=== PATIENT | female | born 1970 | race Caucasian/White ===

== ENCOUNTER 2017-07-29 19:37 | Emergency (ER) | payer OTHER, SELFPAY ==
[2017-07-29 19:37] VITALS: BP 128/89; PULSE 101; RESP 24; TEMP 36.8; O2SAT 96; BMI 38.0
[2017-07-29 20:12] VITALS: O2SAT 98
--- NOTE | 2017-07-29 20:15 | RAD_ITS ---
STUDY: X-RAY CHEST REASON FOR EXAM: Female, 47 years old. Short of breath and cough. TECHNIQUE: Frontal and lateral views of the chest. COMPARISON: None. FINDINGS: The lungs are clear and expanded. Stable small calcified granulomas of the mid right lung. There is no demonstrated pleural abnormality. Normal size heart. Normal mediastinum and mary. Normal visualized pulmonary arteries. Normal visualized aortic arch and descending thoracic aorta. Normal visualized thoracic spine. Normal visualized ribs, clavicles, and shoulders. There is no demonstrated abnormality of the visualized soft tissue structures of the upper abdomen. RAD/Chest PA and Lateral IMPRESSION: No acute chest disease. Electronically Signed: Pato Hwang MD at 20:31 EDT , Service support ,
--- NOTE | 2017-07-29 20:30 | ED.DCSUM_ITS ---
- ER Visit Summary Date of Service: 07/29/17 Chief Complaint: Cough History of Present Illness: The patient is a 47 F date that last Friday she began to have sneezing and cough. She states that by Friday she believes she had a fever. She notes bilateral ear pressure. She states she has a history of tympanic membrane rupture is a further interruption her again. She states her chest is very sore from coughing. She states that this is gotten to the point where she is unable to smoke. No recent fever today. Nasal drainage has been clear. Physical Examination: Afebrile vital signs are stable Gen: Well-nourished well-developed Head: Normocephalic atraumatic Eyes: Perrl EOMI ENT: Patient has a serous otitis bilaterally. There is evidence of prior tympanic membrane rupture. She has bilateral turbinate edema with clear rhinorrhea. She has evidence of postnasal drip. Patient complains of tenderness palpation over frontal maxillary sinuses. Neck: Supple no lymphadenopathy no JVD nontender CVS: Regular rate rhythm no murmurs normal S1-S2 Respiratory: No distress clear to auscultation bilaterally chest nontender Abdomen: Soft nontender nondistended normal bowel sounds no masses Back: Nontender Extremity: Nontender no edema Skin: Normal color no rash Neuro: alert orientated ?3 CN II-XII intact normal strength sensation reflexes gait cerebellar Psych: Normal affect normal mood Test Results: Chest x-ray was obtained. This was negative Emergency Department Course and Treatment: Patient will be started on prednisone and doxycycline. She can take ibuprofen for the chest wall pain. Follow-up with her doctor if not improving. Impression: 1. Sinusitis This note was generated with [employer] dictation software. It may contain incorrect words, spelling, and punctuation that were not noted in review of the chart prior to signing ED Disposition - Plan for ED Patient: Disposition: Home or Assisted Living Chief Complaint: Shortness of Breath Instructions: ED Sinusitis Abx Tx Prescriptions: Prednisone [Deltasone] 60 mg PO DAILY #15 tab Doxycycline Hyclate 1 tab PO BID #20 cap Referrals: Bar Jaeger MD [Primary Care Provider] - 1 Week if not improving
[2017-07-29 20:58] VITALS: BP 125/97; PULSE 93; O2SAT 96
== END 2017-07-29 20:59 | disposition home or self-care (01) ==
PROVIDERS: Emergency Provider Emergency Medicine; Family Provider Internal Medicine; PCP Internal Medicine
DX: J32.1 Chronic frontal sinusitis (principal); J32.0 Chronic maxillary sinusitis; H65.93 Unspecified nonsuppurative otitis media, bilateral; F17.200 Nicotine dependence, unspecified, uncomplicated; I10 Essential (primary) hypertension; F41.9 Anxiety disorder, unspecified; Z79.82 Long term (current) use of aspirin; Z79.899 Other long term (current) drug therapy
CPT/HCPCS: 71046; 99282

== ENCOUNTER 2019-06-06 22:07 | Emergency (ER) | payer OTHER, SELFPAY ==
[2019-06-06 22:08] VITALS: BP 153/93; PULSE 109; RESP 19; TEMP 37.1; O2SAT 97; BMI 37.3
--- NOTE | 2019-06-06 22:09 | ED.RN ---
PULLED OLD EKG FOR
--- NOTE | 2019-06-06 22:28 | EKG12_ITS ---
Test Reason : CP Blood Pressure : / mmHG Vent. Rate : 106 BPM Atrial Rate : 106 BPM P-R Int : 150 ms QRS Dur : 090 ms QT Int : 356 ms P-R-T Axes : 051 081 018 degrees QTc Int : 472 ms Sinus tachycardia Nonspecific T wave abnormality Abnormal ECG Confirmed by KARLOS IRIZARRY, AYLIN ([id number]), website/blog editor JANESSA JIMENEZ ([id number]) on 06/08/2019 8:17:56 AM Referred By: ALESSIA Confirmed By:AYLIN EVERETT MD
--- NOTE | 2019-06-06 22:28 | ED.DCSUM_ITS ---
History of Present Illness Chief Complaint: General Illness Informant: Patient Narrative: Patient presents for the evaluation of chest pain. 49-year-old smoker states that she was sitting down eating [place] sprouts and watching the Super Bowl. She developed a midsternal lower chest tightness. States that last about 15 minutes. She never had that before. She states that this really scared her as her mom had heart attack and strokes when she was young. She states that her anxiety is making her panic and tearful. She also notes that her eardrums have ruptured recently due to infection and she has had a cough. She has been on erythromycin. She is also out of her pain medication that she takes for chronic sciatica. Past Medical History - Allergies and Home Meds Allergies/Adverse Reactions: Allergies No Known Allergies Allergy (Verified 07/29/17 19:39) Primary Care Physician: Bar Jaeger MD [Primary Care Provider] - Smoking Status: Current every day smoker Review of Systems General: Denies: Chills, Fever, Sweats Eyes: Denies: Visual changes - bilaterally, Diplopia ENT: Reports: Bilateral ear pain. Denies: Rhinorrhea, Sore throat Cardiovascular: Reports: Chest pain. Denies: Palpitations Respiratory: Reports: Cough. Denies: Dyspnea, Dyspnea on exertion Gastrointestinal: Denies: Abdominal pain, Nausea, Vomiting, Diarrhea, Melena, Hematochezia Genitourinary: Denies: Dysuria, Hematuria, Frequency Musculoskeletal: Reports: Back pain. Denies: Extremity Pain Skin: Denies: Rash, Wounds Neurological: Denies: Headache, Weakness, Numbness Physical Exam Vital Signs/Narrative: Vital Signs Temp Pulse Resp BP Pulse Ox 06/06/19 22:08 98.7 F 109 H 19 H 153/93 H 97 Inital Vital Signs reviewed: Yes General: Well nourished, Well developed, Obese, No Acute Distress Head: Normocephalic, Atraumatic Eyes: Perrl, EOMI ENT: Moist mucous membranes, No rhinorrhea Neck: Supple, Nontender Cardiovascular: Regular rate, No murmurs, Tachycardia Respiratory: No distress, CTA bilaterally, Chest nontender Abdomen: Soft, Nontender, Nondistended, Normal bowel sounds Extremities: Nontender, No edema Skin: Normal color, No rash Neurological: Alert, Oriented x3, Cranial nerves II-XII grossly intact, Normal Strength, Normal Sensation Psychological: Tearful - And anxious Diagnostic/Tx/Re-eval - Rhythm Strip Rhythm Strip: Sinus Tach Rate: 106 - I do not see any significant changes when compared to February 25, 2012. Ectopy: None - Medical Decision Making EKG sinus tachycardia at a rate of 106. However her heart rate when she is calm down is down into the 80s. Her EKG is unchanged from 2012. Cardiac enzymes negative. Chest x-ray negative. White count slightly elevated at 13. I think this is most likely to be esophageal spasm. She just finished eating a stack of [place] sprouts when she developed this lower midsternal pressure that did not radiate anywhere. Her anxiety I believe kicked in and made her very scared and tearful which increased her heart rate. At this point patient has scheduled follow-up on with her PCP. She tells me she had a stress test a couple years ago and talk to them about repeating it. As far as her chronic back pain and sciatica she states that is a nonissue for us betty as she will be able to get new medications soon. ED Disposition - Plan for ED Patient: Disposition: Home or Assisted Living Diagnosis: Chest pain Instructions: CHEST PAIN, Uncertain Cause, Esophageal Spasm Referrals: Bar Jaeger MD [Primary Care Provider] - Keep Arnaldo appointment Additional Instructions: Be sure to mention betty's chest pain visit with your doctor when you see him on . If before then you have continued symptoms please return for further evaluation.
[2019-06-06 22:35] VITALS: BP 149/108; PULSE 102; RESP 15; O2SAT 97
--- NOTE | 2019-06-06 22:35 | RAD_ITS ---
STUDY: X-RAY CHEST REASON FOR EXAM: Female, 49 years old. CHEST PAIN, COUGH TECHNIQUE: PA and lateral chest. COMPARISON: 09/28/2017. FINDINGS: The lungs are clear and expanded. There is no demonstrated pleural abnormality. Normal size heart. Normal mediastinum and mary. Normal visualized pulmonary arteries. Normal visualized aortic arch and descending thoracic aorta. Normal visualized thoracic spine. Normal visualized ribs, clavicles, and shoulders. There is no demonstrated abnormality of the visualized soft tissue structures of the upper abdomen. RAD/Chest PA and Lateral IMPRESSION: Normal x-ray examination of the chest. Electronically Signed: Ashia Mckee MD at 23:01 EST Tel , Service support ,
[2019-06-06 22:43] LABS: Absolute Lymphocyte Count 3.66 X10^3/uL (0.83-4.51); Absolute Neutrophil Count 8.7 X10^3/uL (2.0-7.7); Basophil# 0.04 X10^3/uL; Basophil% 0.3 % (0-1); Eosinophil# 0.15 X10^3/uL; Eosinophils% 1.1 % (0-5); Hematocrit 38.5 % (37-47); Hemoglobin 13.4 g/dL (12.0-15.0); Lymphocyte # 3.66 X10^3/ul (4.0); Lymphocyte % 27.1 % (19-41); Mean Corp Hgb Conc 34.8 g/dL (32-36); Mean Corpuscular Hgb 30.5 pg (27.0-32.0); Mean Corpuscular Volume 87.5 fL (81-99); Mean Platelet Vol. 9.1 fl (6.2-12.0); Monocyte# 0.87 X10^3/uL; Monocyte% 6.4 % (0-10); NRBC Flagged by Analyzer 0 % (0-5); Neutrophil % 64.4 % (47-70); Platelet Count 525 K/mm3 (150-450); RBC Distribution Width CV 12.3 % (11.6-14.6); RBC Distribution Width SD 39.7 fl (35.1-43.9); White Blood Count 13.5 K/mm3 (4.4-11.0)
[2019-06-06 22:59] LABS: Anion Gap 10 (5-15); BUN 7 mg/dL (7-18); BUN/Creat Ratio 9.2 RATIO (10-20); Calcium,Total 9.2 mg/dL (8.5-10.1); Chloride 94 mmol/L (98-107); Creatinine, Serum 0.76 mg/dL (0.55-1.02); EST Glomerular Filtration Rate 85 mL/min (>60); Est Glom Filt Rate - Afr Amer 102 mL/min (>60); Estimated Creatinine Clearance 72.44 ml/min; Glucose 103 mg/dL (74-106); Potassium 3.3 mmol/L (3.5-5.1); Sodium Level 130 mmol/L (136-145)
[2019-06-07 00:01] VITALS: BP 150/106; PULSE 95; RESP 16; O2SAT 96
== END 2019-06-07 00:02 | disposition home or self-care (01) ==
PROVIDERS: Emergency Provider Emergency Medicine; PCP Internal Medicine
DX: R07.9 Chest pain, unspecified (principal); F17.200 Nicotine dependence, unspecified, uncomplicated; F41.9 Anxiety disorder, unspecified; E66.9 Obesity, unspecified; Z68.37 Body mass index [BMI] 37.0-37.9, adult; Z82.49 Family history of ischemic heart disease and other diseases of the circulatory system
CPT/HCPCS: 71046; 80048; 84484; 85025; 93005; 99284; A4216

== ENCOUNTER 2021-02-24 17:06 | Emergency (ER) | payer OTHER, SELFPAY ==
[2021-02-24 17:06] VITALS: BP 158/105; PULSE 90; RESP 20; TEMP 36.7; O2SAT 98; BMI 36.2
--- NOTE | 2021-02-24 19:01 | EX.ED.UPPERE ---
HPI History of Present Illness Chief Complaint: Wound Detail of Chief Complaint: Dog scratch medial left arm Informant: patient Occured/Mechanism Mechanism/Context: Yes blunt trauma Onset/Context/Timing Onset: Days (Several days ago) Context: Sudden Onset Timing: Continuous Current Severity: Gone Maximum Severity: Moderate Worsened by: Palpation Relieved by: Rest Associated Symptoms Associated Symptoms: Negative for Parasthesia, Weakness and Loss of Funtion Narrative Narrative: Patient is a 51-year-old [id number] woman who presents because her dog scratched her medial left arm. This occurred 7 days ago. She denies paresthesia, anesthesia medics. Immunization up-to-date. Her son has been caring for it. She did have a Steri-Strip on it. Tetanus Immunization: 5-10 years Prior similar symptoms: No Recent Illness/Hospitalization: No PFSH PFSH Medical History Anxiety Depression Hyperlipidemia Hypertension Hypothyroidism Smoker Home Medications hydrocodone-acetaminophen 1 - 2 tab PO Q4H PRN PRN #12 tablet 12/29/14 [Rx Last Taken Unknown] aspirin 1 tab PO DAILY 07/29/17 [History Last Taken Unknown] fluoxetine 1 tab PO DAILY 07/29/17 [History Last Taken Unknown] hydrochlorothiazide 1 tab PO DAILY 07/29/17 [History Last Taken Unknown] nebivolol [Bystolic] 1 tab PO DAILY 07/29/17 [History Last Taken Unknown] levothyroxine 50 mcg PO DAILY 06/06/19 [History Last Taken Unknown] Allergy/AdvReac Type Severity Reaction Status Date / Time amoxicillin [From Augmentin] Allergy Nausea/Vom/ Verified 02/24/21 17:50 Diarrhea atorvastatin [From Lipitor] Allergy NEEDS Verified 02/24/21 17:50 FOLLOW-UP clavulanic acid Allergy Nausea/Vom/ Verified 02/24/21 17:50 [From Augmentin] Diarrhea Social History (Updated 02/24/21 @ 19:[address] Adolfo Juárez MD) household members: none Smoking Status: Current every day smoker tobacco type: cigarettes substance use type: does not use ROS ROS ED Constitutional Constitutional ED: Denies chills, fever(s), subjective, sweats or weight loss Gastrointestinal Gastrointestinal: Denies nausea or vomiting Musculoskeletal Musculoskeletal: Reports other Details: Left arm pain ; Denies back pain, myalgias or neck pain Integumentary Reports other Details: Bruising and 2 lacerations due to dog scratch ; Denies abscess, Abrasions or rash Neurologic Neurologic: Denies paresthesias or weakness Hematologic/Lymphatic Hematologic/Lymphatic: Denies easy bleeding or easy bruising EXAM Physical Exam Const Vital Signs: 02/24/21 17:06 Temperature 98.1 F Temperature Source Temporal Pulse Rate 90 Respiratory Rate 20 H Blood Pressure 158/105 H Blood Pressure Mean 122 Pulse Ox 98 Oxygen Delivery Method Room Air Positive well nourished, well developed and obese General Appearance ED: well developed and NAD Nutritional Appearance: obese HEENT normocephalic and atraumatic Eyes PERRL and EOMs intact bilaterally Resp normal respiratory effort Cardio regular rate and regular rhythm Extremity Extremity Narrative: Bruising and to open laceration without evidence infection medial left arm. There is no lymphangitis, warmth, erythema or drainage. Neuro oriented x3 and CN's II-XII intact bilaterally Neuro Narrative: Median, radial, ulnar nerve function intact. Sensorium / Orientation: alert Psych mental status grossly normal Skin Skin Narrative: A 2.5 and 1.0 cm laceration medial left arm due to dog scratch. Rashes: no rashes Trauma: Negative for no lacerations or abrasions MDM MDM MDM Narrative Medical decision making narrative: Patient with healing wound by secondary intention without evidence infection. There is bruising. Patient be discharged home with appropriate home-going structures. She was instructed to have her son continue doing what he has been doing. She was told it may take another 1 to 3 weeks to heal and that she will have significant scars. Discharge Plan Triage Chief Complaint: Wound ED Provider: Adolfo Juárez Dx/Rx/DC Orders Clinical Impression: Laceration of left upper arm, Contusion of left upper arm, initial encounter Instructions: ED Contusion, Upper Extremity, ED Laceration, Old: Not Sutured Prescriptions: No Action hydrocodone-acetaminophen 1 TABLET tablet 1 - 2 tab PO Q4H PRN PRN (Reason: Pain) Qty: 12 RF: 0 aspirin 81 MG Tab.Chew 1 tab PO DAILY RF: 0 hydrochlorothiazide 25 MG tablet 1 tab PO DAILY RF: 0 fluoxetine 20 MG capsule 1 tab PO DAILY RF: 0 nebivolol [Bystolic] 5 MG tablet 1 tab PO DAILY RF: 0 levothyroxine 50 MCG tablet 50 mcg PO DAILY RF: 0 Primary Care Provider: Bar Jaeger Referrals: Bar Jaeger MD [Primary Care Provider] - As Needed Disposition Disposition: Home, Self Care
[2021-02-24 19:30] VITALS: BP 138/78; PULSE 80; RESP 19; O2SAT 97
== END 2021-02-24 19:31 | disposition home or self-care (01) ==
PROVIDERS: Emergency Provider Emergency Medicine; PCP Internal Medicine
DX: S41.112A Laceration without foreign body of left upper arm, initial encounter (principal); S40.022A Contusion of left upper arm, initial encounter; W54.1XXA Struck by dog, initial encounter; Y93.9 Activity, unspecified; Y92.9 Unspecified place or not applicable; Y99.9 Unspecified external cause status; I10 Essential (primary) hypertension; E78.5 Hyperlipidemia, unspecified; E03.9 Hypothyroidism, unspecified; F17.210 Nicotine dependence, cigarettes, uncomplicated; Z79.82 Long term (current) use of aspirin; Z79.899 Other long term (current) drug therapy
CPT/HCPCS: 99283

== ENCOUNTER 2022-02-21 16:09 | Emergency (ER) | payer OTHER, SELFPAY ==
[2022-02-21 16:10] VITALS: BP 148/104; PULSE 113; RESP 26; TEMP 36.1; O2SAT 95; BMI 34.5
--- NOTE | 2022-02-21 16:36 | EDS_ITS ---
HPI History of Present Illness Chief Complaint: Back Narrative Narrative: Patient with past medical history of chronic back pain and sciatica presents with a 4-day flare of her sciatic problems. She states she used to be in pain management, then went and saw her primary care physician. She used to take narcotic pain medication but quit taking that in May of this year because she did not like the way it made her feel. She has been taking ibuprofen without relief. She denies any fevers or chills. She has pain in her low back and buttocks bilaterally. Sometimes it will shoot down the right side, other times the left. No saddle anesthesias. She denies any loss of bowel or bladder but states that sometimes with the pain she has a bladder spasm which causes her to wet herself. She denies any red flag signs for cauda equina. She presents to the emergency department wanting a shot of Toradol to help with her pain. PFSH PFSH Medical History Anxiety COPD (chronic obstructive pulmonary disease) Depression Hyperlipidemia Hypertension Hypothyroidism Smoker Home Medications aspirin 81 mg chewable tablet 1 tab PO DAILY 07/29/17 [History Last Taken Unkn own] fluoxetine 20 mg capsule 1 tab PO DAILY 07/29/17 [History Last Taken Unknown] hydrochlorothiazide 25 mg tablet 1 tab PO DAILY 07/29/17 [History Last Taken Unknown] nebivolol 5 mg tablet (Bystolic) 0.5 tab PO DAILY 07/29/17 [History Last Taken Unknown] levothyroxine 50 mcg tablet 50 mcg PO DAILY 06/06/19 [History Last Taken Unknown] Allergy/AdvReac Type Severity Reaction Status Date / Time amoxicillin [From Augmentin] Allergy Nausea/Vom/ Verified 02/21/22 16:13 Diarrhea atorvastatin [From Lipitor] Allergy NEEDS Verified 02/21/22 16:13 FOLLOW-UP clavulanic acid Allergy Nausea/Vom/ Verified 02/21/22 16:13 [From Augmentin] Diarrhea Social History household members: none Smoking Status: Current every day smoker tobacco type: cigarettes substance use type: does not use ROS ROS ED ROS Narrative Constitutional: No fever, no chills. HEENT: No sore throat. No neck pain. No loss of vision. No rhinorrhea. Cardiovascular: No chest pain. No palpitations. No pedal edema. Respiratory: No cough, no shortness of breath. Abdominal: No abdominal pain. No nausea. No vomiting. Genitourinary: No dysuria. No hematuria. Musculoskeletal: No myalgias. No arthralgias. Positive low back pain and sciatic pain and buttocks bilaterally. Neurologic: No headaches. No dizziness. No lightheadedness. Skin: No rash. No change in color. Psychiatric: No depression. No anxiety. EXAM Physical Exam Narrative Exam Narrative: Afebrile. Vital signs noted. HEENT: Normocephalic. Atraumatic. PERRL, EOMI. Neck soft and supple. No point tenderness or step off. Cardiovascular: Regular rate and rhythm. No murmurs, rubs, or gallops appreciated. Respiratory: No tachypnea. Lungs clear to auscultation bilaterally. Gastrointestinal: Abdomen soft, nontender, with normoactive bowel sounds. No rebound or guarding. Neurological: Awake. Alert. Nonfocal, nonlateralizing. Able to transfer from chair and sit on cot. DTRs equal and symmetric. Skin: No rash. Normal color. No pallor. Musculoskeletal: No pedal edema. Full range of motion extremities. Diffuse tenderness to palpation and bilateral sciatic notches and lumbar paraspinal musculature. No step-off. Const Vital Signs: 02/21/22 16:10 Temperature 96.9 F L Temperature Source Temporal Pulse Rate 113 H Respiratory Rate 26 H Blood Pressure 148/104 H Blood Pressure Mean 118 Pulse Ox 95 Oxygen Delivery Method Room Air MDM MDM MDM Narrative Medical decision making narrative: I did offer the patient a muscle relaxer but she declined. She was given an intramuscular injection of Toradol 60 mg. Upon repeat evaluation, she is sitting in the chair comfortably. She states that the sharp pain is relieved and she feels improved. She will continue her [id number] ibuprofen and follow-up with her primary care physician. I feel she can be discharged safely home with follow-up. Return instructions to the emergency department were reviewed. Disposition is discharged home in stable condition. Discharge Plan Triage Chief Complaint: Back ED Provider: Wilfredo Sanchez Dx/Rx/DC Orders Clinical Impression: Chronic back pain, Bilateral sciatica Instructions: ED Back Pain (Acute or Chronic), ED Sciatica Prescriptions: No Action aspirin 81 MG tablet,chewable 1 tab PO DAILY hydrochlorothiazide 25 MG tablet 1 tab PO DAILY fluoxetine 20 MG capsule 1 tab PO DAILY Label Comments: TAKE 1 CAPSULE EVERY DAY nebivolol [Bystolic] 5 MG tablet 0.5 tab PO DAILY Label Comments: TAKE 1 TABLET BY MOUTH EVERY DAY DIRECTED levothyroxine 50 MCG tablet 50 mcg PO DAILY Primary Care Provider: Jonatan Bolton Referrals: Bar Jaeger MD [Non-Staff] - 3-5 Days if not improving Disposition Disposition: Home, Self Care
[2022-02-21] MEDS: Ketorolac 60 MG/2 ML Vial IM (16:53)
[2022-02-21 18:09] VITALS: RESP 18
[2022-02-21 18:17] VITALS: RESP 16
== END 2022-02-21 18:23 | disposition home or self-care (01) ==
PROVIDERS: Emergency Provider Emergency Medicine; PCP Internal Medicine; Visit Provider Emergency Medicine
DX: M54.41 Lumbago with sciatica, right side (principal); J44.9 Chronic obstructive pulmonary disease, unspecified; M54.42 Lumbago with sciatica, left side; G89.29 Other chronic pain; E78.5 Hyperlipidemia, unspecified; E03.9 Hypothyroidism, unspecified; I10 Essential (primary) hypertension; F17.210 Nicotine dependence, cigarettes, uncomplicated; Z79.82 Long term (current) use of aspirin; Z79.899 Other long term (current) drug therapy
CPT/HCPCS: 96372; 99282

== ENCOUNTER 2023-04-05 20:16 | Emergency (ER) | payer OTHER, SELFPAY ==
[2023-04-05 20:17] VITALS: BP 148/110; PULSE 113; RESP 20; TEMP 36.6; O2SAT 99; BMI 33.8
--- NOTE | 2023-04-05 20:33 | EKG12_ITS ---
Test Reason : DYSRHYTHMIA Blood Pressure : / mmHG Vent. Rate : 100 BPM Atrial Rate : 100 BPM P-R Int : 132 ms QRS Dur : 084 ms QT Int : 368 ms P-R-T Axes : 047 078 014 degrees QTc Int : 474 ms Normal sinus rhythm Normal ECG Confirmed by KARLOS IRIZARRY, AYLIN ([id number]), metropolitan editor NIK SCHWARTZ ([id number]) on 04/07/2023 10:09:50 AM Referred By: Confirmed By:AYLIN EVERETT MD
--- NOTE | 2023-04-05 20:37 | EDS_ITS ---
HPI History of Present Illness Chief Complaint: General Illness Informant: patient Narrative Narrative: Patient presents secondary to URI symptoms and chest pain. She reports a chronic ongoing cough that is recently worsened. She has chronic pain around the left lateral chest wall that she states is recently moved and gotten worse. She reports midsternal chest pain for the past 2 days. She states the pain seems to go straight through to her back. She also reports chronic sinus congestion and drainage. She states this has been ongoing for about 4 months. PFSH PFSH Medical History Anxiety COPD (chronic obstructive pulmonary disease) Depression Hyperlipidemia Hypertension Hypothyroidism Smoker Home Medications aspirin 81 mg chewable tablet 1 tab PO DAILY 07/29/17 [History Last Taken Unknown] hydrochlorothiazide 25 mg tablet 1 tab PO QHS 07/29/17 [History Last Taken Unknown] nebivolol 5 mg tablet (Bystolic) 0.5 tab PO DAILY 07/29/17 [History Last Taken Unknown] doxycycline monohydrate 100 mg capsule 100 mg PO BID #20 CAPSULES 04/05/23 [Rx Last Taken Unknown] hydrocodone-acetaminophen 5-325mg 5mg-325mg 1 tab PO Q6H PRN pain 1 day #4 TABLETS 04/05/23 [Rx Last Taken Unknown] loratadine 10 mg tablet (Allergy Relief (loratadine)) 10 mg PO DAILY 04/05/23 [History Last Taken Unknown] prednisone 20 mg tablet 40 mg (2 x 20 mg) PO DAILY #8 tabs 04/05/23 [Rx Last Taken Unknown] Allergy/AdvReac Type Severity Reaction Status Date / Time amoxicillin [From Augmentin] Allergy Nausea/Vom/ Verified 04/05/23 20:18 Diarrhea atorvastatin [From Lipitor] Allergy NEEDS Verified 04/05/23 20:18 FOLLOW-UP clavulanic acid Allergy Nausea/Vom/ Verified 04/05/23 20:18 [From Augmentin] Diarrhea Social History household members: none Smoking Status: Current every day smoker tobacco type: cigarettes substance use type: does not use ROS ROS ED Constitutional Constitutional ED: Denies chills or fever(s) Eyes Eyes: Denies discharge from eye(s) ENT ENT ED: Reports sore throat and other Details: Sinus drainage ; Denies discharge from eye(s) or rhinorrhea Cardiovascular Cardiovascular: Reports chest pain; Denies palpitations Respiratory/Chest Respiratory/Chest: Reports cough and dyspnea Gastrointestinal Gastrointestinal: Denies abdominal pain, diarrhea, nausea or vomiting Genitourinary Genitourinary ED: Denies dysuria Musculoskeletal Musculoskeletal: Reports back pain; Denies extremity pain Integumentary Denies Abrasions or rash Neurologic Neurologic: Denies headache(s) or weakness Psychiatric Psychiatric: Reports anxiety; Denies depression Allergic/Immunologic Allergic/Immunologic ED: Denies lip swelling or urticaria EXAM Physical Exam Const Vital Signs: 04/05/23 20:17 04/05/23 20:52 04/05/23 21:13 Temperature 97.8 F Temperature Source Temporal Pulse Rate 113 H 103 H Respiratory Rate 20 H 17 Respiratory Effort Normal Non-Labored Respiratory Pattern Normal Blood Pressure 148/110 H 150/95 H Blood Pressure Mean 122 113 Pulse Ox 99 Oxygen Delivery Method Room Air Positive well nourished and well developed General Appearance ED: well developed HEENT Reports moist mucous membranes HEENT Narrative: Posterior pharyngeal cobblestoning. No erythema. Uvula midline. Eyes EOMs intact bilaterally Chest Wall inspection of chest normal and palpation of chest normal Resp normal respiratory effort and clear to auscultation bilaterally Cardio regular rate and regular rhythm GI non-tender Palpation: soft Extremity normal to inspection Neuro oriented x3 and no sensory deficits noted Motor Exam: strength 5/5 throughout Psych Mood & Affect: anxious and tearful Skin no rashes or lesions noted MDM MDM MDM Narrative Medical decision making narrative: Patient placed on environmental monitoring specialist. EKG obtained to evaluate for cardiac arrhythmia/ischemia. Labwork obtained to evaluate for leukocytosis, anemia, and electrolyte derangement. Chest x-ray obtained to evaluate for acute lung pathology, cardiac size, or mediastinal abnormality. History & Record Review Discussion w/independent historian: Patient Lab Data Attestation: I reviewed the patient's lab results. Labs: Laboratory Results - last 24 hr 04/05/23 20:46 WBC 14.7 H RBC 4.87 Hgb 14.3 Hct 42.4 MCV 87.1 MCH 29.4 MCHC 33.7 RDW Std Deviation 40.9 RDW Coeff of Yudy 12.9 Plt Count 538 H MPV 8.9 Immature Gran % (Auto) 0.400 Neut % (Auto) 65.5 Lymph % (Auto) 26.6 Nye % (Auto) 6.7 Eos % (Auto) 0.5 Baso % (Auto) 0.3 Absolute Neuts (auto) 9.6 H Absolute Lymphs (auto) 3.90 Nucleated RBC % 0 D-Dimer Quant (PE/DVT) < 0.27 L Sodium 129 L Potassium 3.8 Chloride 96 L Carbon Dioxide 27.0 Anion Gap 6 BUN 11 Creatinine 0.74 Estim Creat Clear Calc 71.06 Est GFR (MDRD) Af Amer 104 Est GFR (MDRD) Non-Af 86 BUN/Creatinine Ratio 14.8 Glucose 125 H Calcium 9.7 Troponin I High Sens 4 B-Natriuretic Peptide 3.7 Radiography Chest X-Ray - ED: 1 View, Read by ED Physician, Normal, Heart, Lungs and Mediastinum Diagnostic Testing: Clinical Impression(s) from Imaging Studies Chest X-Ray 04/05/23 20:45 IMPRESSION: No radiographic evidence of acute cardiopulmonary disease. Electronically Signed: Aroldojana Womack, DO at 21:19 EST , EKG Initial EKG: Attestation: I personally reviewed and interpreted this EKG as follows: Interpretation: Sinus Rhythm (Sinus at 100 with no acute ischemia.) Treatment and Re-Evaluation :: CBC was white count of 14.7 with normal differential. Hemoglobin is normal at 14.3. Chemistry studies reveal a sodium of 129 which is consistent with her most recent labs. Renal function is normal. Glucose is 125. Troponin is normal at 4, BNP is normal at 3.7, D-dimer is less than 0.27. EKG is sinus with no acute ischemia. Portable chest x-ray per my interpretation reveals no acute findings. Radiology interpretation reviewed and agrees. Swab for COVID and influenza is negative. Test results discussed with the patient. She does have underlying COPD and in light of this I will cover her with a course of doxycycline. She has chest pain around the sternal border which may represent costochondritis. I will treat her with a burst of steroids for this and write her a few tabs of [place] for pain. I will refer her to ENT as she has had chronic sinus drainage and ear problems despite taking Claritin daily. Discharge Plan Triage Chief Complaint: General Illness ED Provider: Stephanie Fritz Dx/Rx/DC Orders Clinical Impression: Costochondritis, Sinus drainage, Bronchitis Instructions: ED Upper Resp Infec Abx Tx, ED Chest Wall Pain, Costochondritis Prescriptions: New doxycycline monohydrate 100 mg capsule 100 mg PO BID Qty: 20 0RF prednisone 20 mg tablet 40 mg PO DAILY Qty: 8 0RF hydrocodone-acetaminophen 5-325 mg tablet 1 tab PO Q6H PRN (Reason: pain) 1 Days Qty: 4 0RF No Action aspirin 81 MG tablet,chewable 1 tab PO DAILY hydrochlorothiazide 25 MG tablet 1 tab PO QHS nebivolol [Bystolic] 5 MG tablet 0.5 tab PO DAILY Patient Comments: TAKE 1 TABLET BY MOUTH EVERY DAY DIRECTED loratadine [Allergy Relief (loratadine)] 10 mg tablet 10 mg PO DAILY Primary Care Provider: NOT,DEFINED Referrals: Alfredo Collins MD [Med Staff - Active Staff] - 1-2 Weeks NOT,DEFINED [Primary Care Provider] - Disposition Disposition: Home, Self Care
--- NOTE | 2023-04-05 20:45 | RAD_ITS ---
EXAM: XR CHEST, 1 VIEW CLINICAL INDICATION: sob, cough TECHNIQUE: Frontal view of the chest. COMPARISON: 06/06/2019 FINDINGS: LUNGS AND PLEURAL SPACES: No significant abnormality. No consolidation or edema. No pneumothorax. No effusion. HEART: No significant abnormality. Cardiac silhouette not enlarged. MEDIASTINUM: Central airways and mediastinal contour are unremarkable. BONES/JOINTS: No significant abnormality. No acute fracture. SOFT TISSUES: No significant abnormality. RAD/Chest 1 View (Portable) IMPRESSION: No radiographic evidence of acute cardiopulmonary disease. Electronically Signed: Aroldo Womack DO at 21:19 EST ,
[2023-04-05 20:52] VITALS: BP 150/95; PULSE 103; RESP 17
[2023-04-05 20:53] LABS: Absolute Neutrophil Count 9.6 X10^3/uL (2.0-7.7); Basophil# 0.05 X10^3/uL; Basophil% 0.3 % (0-1); Eosinophil# 0.08 X10^3/uL; Eosinophils% 0.5 % (0-5); Hematocrit 42.4 % (37-47); Hemoglobin 14.3 g/dL (12.0-15.0); Lymphocyte % 26.6 % (19-41); Mean Corp Hgb Conc 33.7 g/dL (32-36); Mean Corpuscular Hgb 29.4 pg (27.0-32.0); Mean Corpuscular Volume 87.1 fL (81-99); Mean Platelet Vol. 8.9 fl (6.2-12.0); Monocyte# 0.98 X10^3/uL; Monocyte% 6.7 % (0-10); NRBC Flagged by Analyzer 0 % (0-5); Neutrophil # 9.61 X10^3/uL (2.7-7.7); Neutrophil % 65.5 % (47-70); Platelet Count 538 K/mm3 (150-450); RBC Distribution Width CV 12.9 % (11.6-14.6); RBC Distribution Width SD 40.9 fl (35.1-43.9); Red Blood Count 4.87 M/mm3 (4.2-5.4); White Blood Count 14.7 K/mm3 (4.4-11.0)
[2023-04-05 21:08] LABS: BNP,B-Type NATRIURETIC PEPTIDE 3.7 pg/mL (0-100)
[2023-04-05 21:11] LABS: Anion Gap 6 (5-15); BUN 11 mg/dL (7-18); BUN/Creat Ratio 14.8 RATIO (10-20); Calcium,Total 9.7 mg/dL (8.5-10.1); Chloride 96 mmol/L (98-107); Creatinine, Serum 0.74 mg/dL (0.55-1.02); EST Glomerular Filtration Rate 86 mL/min (>60); Est Glom Filt Rate - Afr Amer 104 mL/min (>60); Estimated Creatinine Clearance 71.06 ml/min; Glucose 125 mg/dL (74-106); Potassium 3.8 mmol/L (3.5-5.1); Sodium Level 129 mmol/L (136-145); Troponin-I HS 4 pg/mL (3.0-54.0)
[2023-04-05] MEDS: 0.9% Normal Saline (1000mL) 1,000 ML 150 ML IV (21:11)
[2023-04-05 21:31] LABS: D-Dimer Quantitative (DVT/PE) < 0.27 FEU/ug/m (0.27-0.49)
[2023-04-05] MEDS: predniSONE 20 MG Tablet 40 MG PO (22:08)
[2023-04-05] MEDS: Doxycycline 100 MG CAPSULE PO (22:08)
== END 2023-04-05 22:12 | disposition home or self-care (01) ==
PROVIDERS: Emergency Provider Emergency Medicine; Visit Provider Emergency Medicine
DX: M94.0 Chondrocostal junction syndrome [Tietze] (principal); J44.9 Chronic obstructive pulmonary disease, unspecified; J32.9 Chronic sinusitis, unspecified; J40 Bronchitis, not specified as acute or chronic; F17.210 Nicotine dependence, cigarettes, uncomplicated; Z79.82 Long term (current) use of aspirin
CPT/HCPCS: 71045; 80048; 83880; 84484; 85025; 85379; 87428; 93005; 99285; J7030; A4216

== ENCOUNTER 2023-07-10 13:25 | Emergency (ER) | payer OTHER, SELFPAY ==
[2023-07-10 13:27] VITALS: BP 131/99; PULSE 101; RESP 18; TEMP 36.6; O2SAT 98; BMI 36.3
[2023-07-10 14:30] VITALS: BP 146/103; PULSE 99; RESP 16; O2SAT 98
--- NOTE | 2023-07-10 15:40 | RAD_ITS ---
STUDY: X-RAY - RIGHT RADIUS AND ULNA REASON FOR EXAM: Female, 53 years old. Injury/Pain TECHNIQUE: 2 view(s) of the forearm. COMPARISON: None. FINDINGS: There is no demonstrated soft tissue swelling. Normal visualized radius. Normal visualized ulna. RAD/Forearm 2 Views IMPRESSION: Normal x-ray examination of the radius and ulna. Electronically Signed: Ermias Bailey MD at 16:05 EST ,
--- NOTE | 2023-07-10 15:40 | RAD_ITS ---
STUDY: X-RAY - LEFT SHOULDER REASON FOR EXAM: Female, 53 years old. Injury/Pain TECHNIQUE: 3 view(s) of the shoulder. COMPARISON: None. FINDINGS: Normal glenohumeral articulation. Normal acromioclavicular joint. Normal acromion. Normal humeral head and visualized proximal humerus. The soft tissue structures are unremarkable. Normal visualized pulmonary apex. RAD/Shoulder min 2 Views IMPRESSION: Normal x-ray examination of the shoulder. Electronically Signed: Ermias Bailey MD at 16:05 EST ,
--- NOTE | 2023-07-10 15:47 | EX.ED.DYSGE1 ---
HPI History of Present Illness Chief Complaint: Other, Pain/Inj Informant: patient Onset/Context/Timing Onset: Weeks (1) Context: Gradual Onset Timing: Continuous Quality: Aching Location: Right wrist, left shoulder Worsened by: Movement Relieved by: Rest Narrative Narrative: Patient presents with elevated blood pressure, right wrist pain, and left shoulder pain that has been getting worse over the past week. Patient states she ran out of her blood pressure medications and does not have a primary care physician in order to get these refilled. Patient states she hit her right wrist on a wall in her house. Patient states her left shoulder pain has been chronic. Patient states it is worse with movement. Patient describes her pain as aching. Patient states her pain is better with rest. Patient denies any paresthesias or weakness. Patient denies any chest pain or shortness of breath. PFSH PFSH Medical History Anxiety COPD (chronic obstructive pulmonary disease) Depression Hyperlipidemia Hypertension Hypothyroidism Smoker Home Medications aspirin 81 mg chewable tablet 1 tab PO DAILY 07/29/17 [History Last Taken Unknown] doxycycline monohydrate 100 mg capsule 100 mg PO BID #20 CAPSULES 04/05/23 [Rx Last Taken Unknown] hydrocodone-acetaminophen 5-325mg 5mg-325mg 1 tab PO Q6H PRN pain 1 day #4 TABLETS 04/05/23 [Rx Last Taken Unknown] loratadine 10 mg tablet (Allergy Relief (loratadine)) 10 mg PO DAILY 04/05/23 [History Last Taken Unknown] hydrochlorothiazide 25 mg tablet 1 tab PO QHS 30 days #30 tabs 07/10/23 [Rx Last Taken Unknown] nebivolol 5 mg tablet (Bystolic) 0.5 tab PO DAILY 30 days #15 tabs 07/10/23 [Rx Last Taken Unknown] prednisone 20 mg tablet 40 mg (2 x 20 mg) PO DAILY #8 tabs 07/10/23 [Rx Last Taken Unknown] Allergy/AdvReac Type Severity Reaction Status Date / Time amoxicillin [From Augmentin] Allergy Nausea/Vom/ Verified 07/10/23 13:27 Diarrhea atorvastatin [From Lipitor] Allergy NEEDS Verified 07/10/23 13:27 FOLLOW-UP clavulanic acid Allergy Nausea/Vom/ Verified 07/10/23 13:27 [From Augmentin] Diarrhea Surgical History (Updated 07/10/23 @ 15:[address] Calixto Weiner, DO) History of endometrial ablation Hx of tubal ligation Social History household members: none Smoking Status: Current every day smoker tobacco type: cigarettes substance use type: does not use ROS ROS ED Constitutional Constitutional ED: Denies chills or fever(s) Eyes Eyes: Denies blurry vision or change in vision ENT ENT ED: Denies rhinorrhea or sore throat Cardiovascular Cardiovascular: Denies chest pain or palpitations Respiratory/Chest Respiratory/Chest: Denies cough or dyspnea Gastrointestinal Gastrointestinal: Denies nausea or vomiting Genitourinary Genitourinary ED: Denies dysuria or hematuria Musculoskeletal Musculoskeletal: Reports neck pain; Denies back pain Integumentary Denies abscess or rash Neurologic Neurologic: Denies headache(s) or weakness Allergic/Immunologic Allergic/Immunologic ED: Denies mouth swelling or urticaria EXAM Physical Exam Const Vital Signs: 07/10/23 13:27 07/10/23 14:30 07/10/23 14:30 Temperature 97.8 F Temperature Source Temporal Pulse Rate 101 H 99 Respiratory Rate 18 16 Respiratory Effort Normal Respiratory Pattern Normal Blood Pressure 131/99 H 146/103 H Blood Pressure Mean 109 117 Pulse Ox 98 98 Oxygen Delivery Method Room Air Room Air Positive well nourished and well developed General Appearance ED: well developed and NAD HEENT Reports moist mucous membranes Neck supple and no JVD Resp normal respiratory effort and clear to auscultation bilaterally Cardio regular rate and regular rhythm GI non-tender and non-distended Palpation: soft Extremity Extremity Narrative: There is tenderness and mild edema of the right distal radius. There is no ecchymosis. There is no deformity noted. There is also diffuse tenderness over the left shoulder. There is no obvious deformity noted. Range of motion was limited in all motions of the right wrist and left shoulder secondary to pain. Radial pulses are equal bilaterally. Sensation was intact to light touch in the radial, median, and ulnar areas bilaterally. Strength is 5/5 in the radial, median, and ulnar areas bilaterally. Neuro oriented x3, CN's II-XII intact bilaterally and no sensory deficits noted Sensorium / Orientation: alert Motor Exam: strength 5/5 throughout MDM MDM MDM Narrative Medical decision making narrative: Differential diagnosis includes right forearm fracture, contusion, left proximal humerus fracture, dislocation, and arthritis. X-rays of the left shoulder will be obtained to assess for arthritis, fracture, dislocation. X-rays of the right forearm will be obtained to assess for fracture. Radiography Diagnostic Testing: Clinical Impression(s) from Imaging Studies Forearm X-Ray 07/10/23 15:40 IMPRESSION: Normal x-ray examination of the radius and ulna. Electronically Signed: Ermias Bailey MD at 16:05 EST , Shoulder X-Ray 07/10/23 15:40 IMPRESSION: Normal x-ray examination of the shoulder. Electronically Signed: Ermias Bailey MD at 16:05 EST , X-rays of the left shoulder were obtained. There are 3 views. On my independent interpretation, there is no acute fracture or dislocation. There is no soft tissue swelling noted. Radiologist also interpreted the x-ray and agrees. X-rays of the right forearm were obtained. There are 2 views. On my independent interpretation, there is no acute fracture or dislocation. There is no soft tissue swelling noted. Radiologist also interpreted the x-rays and agrees. Treatment and Re-Evaluation :: Patient was given a dose of her Bystolic here. Patient was advised of her findings. Patient was given a cock up wrist splint. Patient was given a prescription for a short course of prednisone. Patient was advised to continue to monitor her blood pressure. Patient was given refills of her hydrochlorothiazide and Bystolic. Patient was instructed to follow-up with a primary care physician in 5-7 days. Patient understood and was agreeable with the plan. All questions were answered. Discharge Plan Triage Chief Complaint: Other, Pain/Inj Other Complaint: Med Refill ED Provider: Calixto Weiner Dx/Rx/DC Orders Clinical Impression: Acute pain of left shoulder, Hypertension, Contusion of right forearm, initial encounter Instructions: ED Contusion, Upper Extremity, ED Hypertension, Established, ED Shoulder Pain, Uncertain Cause Prescriptions: Continued prednisone 20 mg tablet 40 mg PO DAILY Qty: 8 0RF hydrochlorothiazide 25 MG tablet 1 tab PO QHS 30 Days Qty: 30 0RF nebivolol [Bystolic] 5 MG tablet 0.5 tab PO DAILY 30 Days Qty: 15 0RF No Action aspirin 81 MG tablet,chewable 1 tab PO DAILY loratadine [Allergy Relief (loratadine)] 10 mg tablet 10 mg PO DAILY doxycycline monohydrate 100 mg capsule 100 mg PO BID Qty: 20 0RF hydrocodone-acetaminophen 5-325 mg tablet 1 tab PO Q6H PRN (Reason: pain) 1 Days Qty: 4 0RF Primary Care Provider: Care Physician,No Primary Referrals: Yue Begum MD [Med Staff - [facility]] - 5-7 Days Care Physician,No Primary [Primary Care Provider] - Disposition Disposition: Home, Self Care
[2023-07-10 18:03] VITALS: BP 138/77; PULSE 82; RESP 16; TEMP 36.4; O2SAT 99
== END 2023-07-10 18:08 | disposition home or self-care (01) ==
PROVIDERS: Emergency Provider Emergency Medicine; Visit Provider Emergency Medicine
DX: S50.11XA Contusion of right forearm, initial encounter (principal); J44.9 Chronic obstructive pulmonary disease, unspecified; W22.01XA Walked into wall, initial encounter; Y92.019 Unspecified place in single-family (private) house as the place of occurrence of the external cause; M25.512 Pain in left shoulder; Z76.0 Encounter for issue of repeat prescription; I10 Essential (primary) hypertension; F17.210 Nicotine dependence, cigarettes, uncomplicated; Z79.82 Long term (current) use of aspirin; Z79.899 Other long term (current) drug therapy
CPT/HCPCS: 73030; 73090; 99284

== ENCOUNTER 2023-07-25 17:13 | Emergency (ER) | payer OTHER, SELFPAY ==
[2023-07-25 17:15] VITALS: BP 156/108; PULSE 104; RESP 18; TEMP 36; O2SAT 96; BMI 34.4
--- NOTE | 2023-07-25 17:47 | CT_ITS ---
STUDY: CT ABDOMEN AND PELVIS WITHOUT CONTRAST REASON FOR EXAM: Female, 53 years old. Flank pain RADIATION DOSAGE (If Supplied By Facility): CTDIvol = ( 11.05 ) mGy, DLP = ( 519.13 ) mGycm TECHNIQUE: Transaxial images were obtained from the dome of the diaphragm to the symphysis pubis without oral contrast, and without intravenous contrast. Sagittal and coronal images were reconstructed. Individualized dose optimization techniques were used for this CT. COMPARISON: None. FINDINGS: The visualized lung bases are unremarkable. The visualized portions of the heart are within normal limits. Normal liver. Normal gallbladder and extrahepatic biliary system. Normal spleen. Normal pancreas. Normal bilateral adrenal glands. Normal right kidney. Normal left kidney. Normal visualized stomach. Normal small intestine. Normal colon. The appendix is visualized and appears normal. Appendix seen on coronal recon images 42-55 There is diffuse atherosclerotic calcification of the abdominal aorta, without a demonstrated aneurysm. Normal inferior vena cava. Normal retroperitoneum. Normal urinary bladder. Uterus is present, the endometrium cannot be accurately evaluated with CT. No suspicious cystic mass or free fluid Normal abdominal wall. Normal osseous structures. CT/Abdomen/Pelvis without Cont IMPRESSION: No suspicious solid organ abnormality, specifically, no obstructive uropathy. No free intraperitoneal fluid, air, or suspicious adenopathy, normal appendix visualized Uterus is present, the endometrium cannot be accurately evaluated with CT Electronically Signed: Roger Doty MD at 18:53 EDT ,
[2023-07-25] MEDS: Ketorolac 15 MG/ML Vial IV (17:57)
[2023-07-25 18:00] LABS: Absolute Lymphocyte Count 4.03 X10^3/uL (0.83-4.51); Absolute Neutrophil Count 7.9 X10^3/uL (2.0-7.7); Basophil# 0.05 X10^3/uL; Basophil% 0.4 % (0-1); Eosinophil# 0.11 X10^3/uL; Eosinophils% 0.8 % (0-5); Hematocrit 43.3 % (37-47); Hemoglobin 14.9 g/dL (12.0-15.0); Lymphocyte # 4.03 X10^3/ul (0.83-4.51); Lymphocyte % 30.8 % (19-41); Mean Corp Hgb Conc 34.4 g/dL (32-36); Mean Corpuscular Hgb 29.4 pg (27.0-32.0); Mean Corpuscular Volume 85.6 fL (81-99); Mean Platelet Vol. 9.6 fl (6.2-12.0); Monocyte# 0.97 X10^3/uL; Monocyte% 7.4 % (0-10); NRBC Flagged by Analyzer 0 % (0-5); Neutrophil # 7.87 X10^3/uL (2.7-7.7); Neutrophil % 60.2 % (47-70); Platelet Count 472 K/mm3 (150-450); RBC Distribution Width SD 40.1 fl (35.1-43.9); Red Blood Count 5.06 M/mm3 (4.2-5.4); White Blood Count 13.1 K/mm3 (4.4-11.0)
--- NOTE | 2023-07-25 18:05 | EX.ED.DYSGE1 ---
HPI <TONEY Dixon - Last Filed: 07/25/23 20:53> History of Present Illness Chief Complaint: Flank Pain Narrative Narrative: Patient presenting today due to right-sided flank pain that she has had intermittently over the past week and a half. She reports that she has also noticed hematuria over this time frame. She went to urgent care today and they encouraged her to come into the emergency department to rule out kidney stone and other abnormality. She denies any history of kidney stone. She reports that she recently had the stomach flu earlier this week and had a lot of nausea, vomiting, and diarrhea that has resolved. She denies any fevers or chills. PFSH <TONEY Dixon - Last Filed: 07/25/23 20:53> PFSH Medical History Anxiety COPD (chronic obstructive pulmonary disease) Depression Hyperlipidemia Hypertension Hypothyroidism Smoker Home Medications aspirin 81 mg chewable tablet 1 tab PO DAILY 07/29/17 [History Last Taken Unknown] doxycycline monohydrate 100 mg capsule 100 mg PO BID #20 CAPSULES 04/05/23 [Rx Last Taken Unknown] hydrocodone-acetaminophen 5-325mg 5mg-325mg 1 tab PO Q6H PRN pain 1 day #4 TABLETS 04/05/23 [Rx Last Taken Unknown] loratadine 10 mg tablet (Allergy Relief (loratadine)) 10 mg PO DAILY 04/05/23 [History Last Taken Unknown] hydrochlorothiazide 25 mg tablet 1 tab PO QHS 30 days #30 tabs 07/10/23 [Rx Last Taken Unknown] nebivolol 5 mg tablet (Bystolic) 0.5 tab PO DAILY 30 days #15 tabs 07/10/23 [Rx Last Taken Unknown] prednisone 20 mg tablet 40 mg (2 x 20 mg) PO DAILY #8 tabs 07/10/23 [Rx Last Taken Unknown] Allergy/AdvReac Type Severity Reaction Status Date / Time amoxicillin [From Augmentin] Allergy Nausea/Vom/ Verified 07/25/23 17:15 Diarrhea atorvastatin [From Lipitor] Allergy NEEDS Verified 07/25/23 17:15 FOLLOW-UP clavulanic acid Allergy Nausea/Vom/ Verified 07/25/23 17:15 [From Augmentin] Diarrhea Surgical History History of endometrial ablation Hx of tubal ligation Social History household members: none Smoking Status: Current every day smoker tobacco type: cigarettes substance use type: does not use ROS <TONEY Dixon - Last Filed: 07/25/23 20:53> ROS ED Constitutional Constitutional ED: Denies chills or fever(s) Cardiovascular Cardiovascular: Denies chest pain Respiratory/Chest Respiratory/Chest: Denies cough or dyspnea Gastrointestinal Gastrointestinal: Denies abdominal pain, nausea or vomiting Genitourinary Genitourinary ED: Reports hematuria; Denies dysuria or urinary urgency Musculoskeletal Musculoskeletal: Reports back pain Integumentary Denies rash Neurologic Neurologic: Denies weakness EXAM <TONEY Dixon - Last Filed: 07/25/23 20:53> Physical Exam Const Vital Signs: 07/25/23 17:15 07/25/23 19:14 07/25/23 19:35 Temperature 96.8 F L 97.2 F L Temperature Source Temporal Pulse Rate 104 H 85 83 Respiratory Rate 18 18 16 Blood Pressure 156/108 H 125/86 H 130/89 H Blood Pressure Mean 124 99 102 Pulse Ox 96 96 99 Oxygen Delivery Method Room Air Room Air Positive well nourished, well developed and no apparent distress General Appearance ED: well developed HEENT Reports normocephalic and head/scalp atraumatic Mouth ED: Yes moist mucous membranes normal Eyes PERRL and EOMs intact bilaterally Neck full ROM and supple Chest Wall inspection of chest normal Resp normal respiratory effort and clear to auscultation bilaterally Cardio regular rate and regular rhythm GI soft to palpation, non-tender, non-distended and no masses Back/Spine normal ROM and normal to inspection General Back: CVA tenderness right Extremity normal to inspection and full ROM Neuro oriented x3, CN's II-XII intact bilaterally, moves all extremities, no focal motor deficits and no sensory deficits noted Sensorium / Orientation: awake and alert Psych mental status grossly normal and thought process normal Skin no rashes or lesions noted and no wounds <Dr. Иван Castañeda MD - Last Filed: 07/25/23 18:16> Physical Exam Const Vital Signs: 07/25/23 17:15 07/25/23 19:14 07/25/23 19:35 Temperature 96.8 F L 97.2 F L Temperature Source Temporal Pulse Rate 104 H 85 83 Respiratory Rate 18 18 16 Blood Pressure 156/108 H 125/86 H 130/89 H Blood Pressure Mean 124 99 102 Pulse Ox 96 96 99 Oxygen Delivery Method Room Air Room Air [facility] <TONEY Dixon - Last Filed: 07/25/23 20:53> [facility] Narrative Medical decision making narrative: Patient presenting today due to right-sided flank pain that she has had for about a week. No history of kidney stones. Right CVA tenderness. Labs will be obtained to rule out leukocytosis, anemia, electrolyte abnormality, VIRGIE, and UTI. CT scan of the abdomen pelvis to rule out kidney stone and other etiology. She will be given IV Toradol for pain. Her serum did come back positive, however patient reports she has had an endometrial ablation and tubal ligation, serum quant will be obtained and did come back at 9. Labs otherwise are unremarkable, she has slight leukocytosis at 13.1, but this has been elevated in the past. UA not consistent with UTI. CT negative for any acute findings. Given her positive serum hCG, I will give her a referral to [facility]. I also did give her a PCP referral. I do suspect that her pain is likely musculoskeletal in nature. Return instructions given and she will be discharged home in stable condition. I have personally performed a face to face assessment of the patient and have reviewed the ADOLFO Note. I performed a substantive portion of the visit including all aspects of the following. My love findings include: History is 53-year-old female with right flank pain primarily around her right CVA area and right lateral back for about a week. No radiation to her abdomen. No dysuria. Exam is [well-appearing 53-year-old female. Vital signs stable afebrile. HEENT exam unremarkable. Neck nontender. Lungs clear to auscultation. Heart regular rhythm no murmur. Abdomen soft, nontender, nondistended normal bowel sounds no peritoneal signs. No right upper or right lower quadrant tenderness. No hernia or mass. No obstruction. Back she has reproducible right CVA and soft tissue tenderness more consistent with like musculoskeletal pain. No discoloration or trauma. Moving all 4 extremities. Neurovascular intact. Nontender no edema. Neurologically she is awake alert no focal motor deficits.] Medical Decision Making [53-year-old female with right flank pain for about a week. CAT scan and labs are pending.] Other additions or changes: [None] Lab Data Labs: Laboratory Results - last 24 hr 07/25/23 07/25/23 07/25/23 17:35 17:50 18:23 WBC 13.1 H RBC 5.06 Hgb 14.9 Hct 43.3 MCV 85.6 MCH 29.4 MCHC 34.4 RDW Std Deviation 40.1 RDW Coeff of Yudy 13.0 Plt Count 472 H MPV 9.6 Immature Gran % (Auto) 0.400 Neut % (Auto) 60.2 Lymph % (Auto) 30.8 [place] % (Auto) 7.4 Eos % (Auto) 0.8 Baso % (Auto) 0.4 Absolute Neuts (auto) 7.9 H Absolute Lymphs (auto) 4.03 Nucleated RBC % 0 Sodium 134 L Potassium 3.4 L Chloride 101 Carbon Dioxide 25.0 Anion Gap 8 BUN 9 Creatinine 0.74 Estim Creat Clear Calc 90.41 Est GFR (MDRD) Af Amer 104 Est GFR (MDRD) Non-Af 86 BUN/Creatinine Ratio 12.1 Glucose 106 Calcium 9.7 HCG, Quant 9 H Serum , Qual POSITIVE H Urine Color Yellow Urine Clarity Clear Urine pH 6.5 Ur Specific [place] 1.015 Urine Protein 30 H Urine Glucose (UA) Normal Urine Ketones 50 H Urine Occult Blood 150 H Urine Nitrite Negative Urine Bilirubin Negative Urine Urobilinogen Normal Ur Leukocyte Esterase 100 H Urine RBC 0-5 SEEN Urine WBC 5-10 SEEN Ur Squamous Epith Cells 5-10 SEEN Urine Bacteria RARE Urine Mucus 0 SEEN Radiography Diagnostic Testing: Clinical Impression(s) from Imaging Studies Abdomen/Pelvis CT 07/25/23 17:47 IMPRESSION: No suspicious solid organ abnormality, specifically, no obstructive uropathy. No free intraperitoneal fluid, air, or suspicious adenopathy, normal appendix visualized Uterus is present, the endometrium cannot be accurately evaluated with CT Electronically Signed: Roger Doty MD at 18:53 EDT , <Dr. Иван Castañeda MD - Last Filed: 07/25/23 18:16> [facility] MDM Narrative Medical decision making narrative: I have personally performed a face to face assessment of the patient and have reviewed the ADOLFO Note. I performed a substantive portion of the visit including all aspects of the following. My love findings include: History is 53-year-old female with right flank pain primarily around her right CVA area and right lateral back for about a week. No radiation to her abdomen. No dysuria. Exam is [well-appearing 53-year-old female. Vital signs stable afebrile. HEENT exam unremarkable. Neck nontender. Lungs clear to auscultation. Heart regular rhythm no murmur. Abdomen soft, nontender, nondistended normal bowel sounds no peritoneal signs. No right upper or right lower quadrant tenderness. No hernia or mass. No obstruction. Back she has reproducible right CVA and soft tissue tenderness more consistent with like musculoskeletal pain. No discoloration or trauma. Moving all 4 extremities. Neurovascular intact. Nontender no edema. Neurologically she is awake alert no focal motor deficits.] Medical Decision Making [53-year-old female with right flank pain for about a week. CAT scan and labs are pending.] Other additions or changes: [None] Lab Data Attestation: I reviewed the patient's lab results. Lab results narrative: CBC shows a white count of 13.1. H&H 14 and 43. Platelets 472. Electrolytes show sodium 134. Potassium 3.4. Gap of 8. Normal BUN and creatinine. Glucose 106. Labs: Laboratory Results - last 24 hr 07/25/23 07/25/23 07/25/23 17:35 17:50 18:23 WBC 13.1 H RBC 5.06 Hgb 14.9 Hct 43.3 MCV 85.6 MCH 29.4 MCHC 34.4 RDW Std Deviation 40.1 RDW Coeff of Yudy 13.0 Plt Count 472 H MPV 9.6 Immature Gran % (Auto) 0.400 Neut % (Auto) 60.2 Lymph % (Auto) 30.8 [place] % (Auto) 7.4 Eos % (Auto) 0.8 Baso % (Auto) 0.4 Absolute Neuts (auto) 7.9 H Absolute Lymphs (auto) 4.03 Nucleated RBC % 0 Sodium 134 L Potassium 3.4 L Chloride 101 Carbon Dioxide 25.0 Anion Gap 8 BUN 9 Creatinine 0.74 Estim Creat Clear Calc 90.41 Est GFR (MDRD) Af Amer 104 Est GFR (MDRD) Non-Af 86 BUN/Creatinine Ratio 12.1 Glucose 106 Calcium 9.7 HCG, Quant 9 H Serum , Qual POSITIVE H Urine Color Yellow Urine Clarity Clear Urine pH 6.5 Ur Specific [place] 1.015 Urine Protein 30 H Urine Glucose (UA) Normal Urine Ketones 50 H Urine Occult Blood 150 H Urine Nitrite Negative Urine Bilirubin Negative Urine Urobilinogen Normal Ur Leukocyte Esterase 100 H Urine RBC 0-5 SEEN Urine WBC 5-10 SEEN Ur Squamous Epith Cells 5-10 SEEN Urine Bacteria RARE Urine Mucus 0 SEEN Radiography Diagnostic Testing: Clinical Impression(s) from Imaging Studies Abdomen/Pelvis CT 07/25/23 17:47 IMPRESSION: No suspicious solid organ abnormality, specifically, no obstructive uropathy. No free intraperitoneal fluid, air, or suspicious adenopathy, normal appendix visualized Uterus is present, the endometrium cannot be accurately evaluated with CT Electronically Signed: Roger Doty MD at 18:53 EDT Reading Location ID and State: [address] [place] [address] , Service support , Discharge Plan Triage Chief Complaint: Flank Pain ED Midlevel Provider: Dotty Tidwell ED Provider: Иван Castañeda Dx/Rx/DC Orders Clinical Impression: Right flank pain Instructions: ED Flank Pain, Uncertain Cause Prescriptions: No Action aspirin 81 MG tablet,chewable 1 tab PO DAILY loratadine [Allergy Relief (loratadine)] 10 mg tablet 10 mg PO DAILY doxycycline monohydrate 100 mg capsule 100 mg PO BID Qty: 20 0RF hydrocodone-acetaminophen 5-325 mg tablet 1 tab PO Q6H PRN (Reason: pain) 1 Days Qty: 4 0RF prednisone 20 mg tablet 40 mg PO DAILY Qty: 8 0RF hydrochlorothiazide 25 MG tablet 1 tab PO QHS 30 Days Qty: 30 0RF nebivolol [Bystolic] 5 MG tablet 0.5 tab PO DAILY 30 Days Qty: 15 0RF Primary Care Provider: Care Physician,No Primary Referrals: Khadijah Bellamy DO [Med Staff - Active Staff] - 1 Week Care Physician,No Primary [Primary Care Provider] - Activity Restrictions/Additional Instructions: Please follow-up with OPTICAL ADVISOR, if you do not have an OPTICAL ADVISOR I have given you a referral. Return for any worsening of your symptoms. Disposition Disposition: Home, Self Care Discharge Date/Time: 07/25/23 19:50
[2023-07-25 18:13] LABS: Anion Gap 8 (5-15); BUN 9 mg/dL (7-18); BUN/Creat Ratio 12.1 RATIO (10-20); Calcium,Total 9.7 mg/dL (8.5-10.1); Chloride 101 mmol/L (98-107); Creatinine, Serum 0.74 mg/dL (0.55-1.02); EST Glomerular Filtration Rate 86 mL/min (>60); Est Glom Filt Rate - Afr Amer 104 mL/min (>60); Estimated Creatinine Clearance 90.41 ml/min; Glucose 106 mg/dL (74-106); Potassium 3.4 mmol/L (3.5-5.1); Sodium Level 134 mmol/L (136-145)
[2023-07-25 18:14] LABS: Internal QC Validated? YES +Cl - CLEAR BKGD; Pregnancy, Serum, hCG Quali. POSITIVE Negative
[2023-07-25 18:29] LABS: Mucous, Urine 0 SEEN /hpf (<or=2+)
[2023-07-25 18:39] LABS: Color, Urine Yellow (Yellow); Glucose, Dipstick Normal (Normal); Ketone-Dipstick 50 mg/dl (Negative); Leukocyte Esterase-Dipstick 100 /ul (Negative); Nitrite-Dipstick Negative (Negative); Occult Blood-Urine 150 /ul (Negative); Protein-Dipstick 30 mg/dl (Negative); Specific Gravity, Urine 1.015 (1.002-1.030); Urine Bilirubin Dipstick Negative (Negative); Urine Clarity Clear (Clear); Urine Urobilinogen Normal (Normal); Urine pH 6.5 (5.0 - 8.0)
[2023-07-25 18:54] LABS: Bacteria RARE /hpf (None Seen); Red Blood Cells-Urine 0-5 SEEN /hpf (0-5); Squamous Epithelial Cells - UA 5-10 SEEN /hpf (5-10); White Blood Cells 5-10 SEEN /hpf (0-5)
[2023-07-25 19:07] LABS: hCG Titer Quant., Serum 9 mIU/mL (1-3)
[2023-07-25 19:14] VITALS: BP 125/86; PULSE 85; RESP 18; O2SAT 96
[2023-07-25 19:35] VITALS: BP 130/89; PULSE 83; RESP 16; TEMP 36.2; O2SAT 99
== END 2023-07-25 19:50 | disposition home or self-care (01) ==
PROVIDERS: Physician Assistant; Emergency Provider Emergency Medicine; Visit Provider Emergency Medicine
DX: R10.9 Unspecified abdominal pain (principal); J44.9 Chronic obstructive pulmonary disease, unspecified; I10 Essential (primary) hypertension; F17.210 Nicotine dependence, cigarettes, uncomplicated; Z79.52 Long term (current) use of systemic steroids; Z79.82 Long term (current) use of aspirin; Z79.899 Other long term (current) drug therapy
CPT/HCPCS: 74176; 80048; 81001; 84702; 84703; 85025; 96374; 99283; A4216

== ENCOUNTER 2023-11-24 18:02 | Emergency (ER) | payer OTHER, SELFPAY ==
[2023-11-24] VITALS (7 sets, daily range): BP systolic 137–181; BP diastolic 81–104; PULSE 17–98; RESP 12–22; TEMP 36.3–37; O2SAT 96–100; BMI 33.3
--- NOTE | 2023-11-24 19:14 | EKG12_ITS ---
Test Reason : DYSRHYTHMIA Blood Pressure : / mmHG Vent. Rate : 078 BPM Atrial Rate : 078 BPM P-R Int : 144 ms QRS Dur : 082 ms QT Int : 384 ms P-R-T Axes : 035 070 039 degrees QTc Int : 437 ms Normal sinus rhythm with sinus arrhythmia Normal ECG Confirmed by KARLOS IRIZARRY, AYLIN ([id number]), haul cane brakeman NIK SCHWARTZ ([id number]) on 11/25/2023 8:37:04 AM Referred By: JUANA Confirmed By:AYLIN EVERETT MD
--- NOTE | 2023-11-24 19:15 | EDS_ITS ---
HPI History of Present Illness Chief Complaint: Shortness of Breath Informant: patient Onset/Context/Timing Onset: Days Context: gradual Timing: Continuous Quality: Negative for Dyspnea on exertion Current Severity: Mild Maximum Severity: Mild Worsened by: Nothing Relieved by: Nothing Associated Symptoms Chest Pain: Positive for None Narrative Narrative: 53-year-old female history of anxiety. States he said shortness of breath and upper back pain for a week. Denies any chest pain. Said it came on with the humidity. She was taking ibuprofen without relief. That is worse on her left flank than her right but is on both. Is not pleuritic. No hemoptysis. No leg pain or swelling. No recent travel, surgery or immobilization. No hemoptysis. She never had a DVT or PE. No fever. No cough. PE Risk Factors: Negative for Cancer, OCP + Smoking + > 35, Prior DVT or PE, Recent immobilization, Recent surgery or Recent travel Prior similar symptoms: No Recent Illness/Hospitalization: No PFSH PFSH Medical History COPD (chronic obstructive pulmonary disease) Anxiety Depression Hypothyroidism Hyperlipidemia Hypertension Smoker Home Medications ?Medication ?Instructions ?Recorded ?Last Taken ?Type aspirin 81 mg chewable tablet 1 tab PO DAILY 07/29/17 Unknown History loratadine 10 mg tablet (Allergy 10 mg PO DAILY 04/05/23 Unknown History Relief (loratadine)) hydrochlorothiazide 25 mg tablet 1 tab PO QHS 30 days #30 tabs 07/10/23 Unknown Rx nebivolol 5 mg tablet (Bystolic) 0.5 tab PO DAILY 30 days #15 tabs 07/10/23 Unknown Rx fluticasone propionate 50 2 spray intranasal DAILY 11/24/23 Unknown History mcg/actuation nasal spray,suspension ibuprofen 200 mg capsule 600 mg PO Q8H PRN pain 11/24/23 Unknown History omeprazole 20 mg tablet,delayed 20 mg PO DAILY PRN gastric reflux 11/24/23 Unknown History release Allergy/AdvReac Type Severity Reaction Status Date / Time amoxicillin (From Augmentin) Allergy Nausea/Vom/ Verified 11/24/23 18:03 Diarrhea atorvastatin (From Lipitor) Allergy NEEDS Verified 11/24/23 18:03 FOLLOW-UP clavulanic acid (From Allergy Nausea/Vom/ Verified 11/24/23 18:03 Augmentin) Diarrhea Surgical History History of endometrial ablation Hx of tubal ligation Social History household members: none Smoking Status: Current every day smoker tobacco type: cigarettes substance use type: does not use ROS ROS ED ROS Narrative Shortness of breath. Review of Systems ROS Unobtainable: Denies due to encephalopathy Constitutional Constitutional ED: Denies chills or fever(s) Eyes Eyes: Denies blurry vision ENT ENT ED: Denies ear pain Cardiovascular Cardiovascular: Denies chest pain Respiratory/Chest Respiratory/Chest: Denies cough or dyspnea Gastrointestinal Gastrointestinal: Denies abdominal pain Genitourinary Genitourinary ED: Denies dysuria or hematuria Musculoskeletal Musculoskeletal: Reports back pain; Denies arthralgias Integumentary Denies abscess or Abrasions Neurologic Neurologic: Denies headache(s) Psychiatric Psychiatric: Reports anxiety; Denies depression or suicidal ideation Hematologic/Lymphatic Hematologic/Lymphatic: Denies easy bleeding, easy bruising or lymphadenopathy Allergic/Immunologic Allergic/Immunologic ED: Denies mouth swelling or tongue swelling EXAM Physical Exam Narrative Exam Narrative: Deny a fever no acute distress vital signs stable afebrile. Pulse ox 100% on room air no hypoxia. H EENT exam unremarkable. Smell tobacco. Neck nontender. No lymphadenopathy. Lungs clear to auscultation bilaterally. Prolonged expiratory phase. Really no significant wheezing. No rales or rhonchi. Heart regular rhythm rate about 90 no murmur. Chest wall and ribs nontender. Abdomen soft nontender. Moving all 4 extremities. Calves are nontender that edema or cords. Neurologically she is awake alert. Back she has mild reproducible upper back pain. She is awake and alert. No focal motor deficits. Const Vital Signs: 11/24/23 18:03 11/24/23 18:30 11/24/23 18:32 Temperature 97.4 F L 98.6 F Temperature Source Temporal Oral Pulse Rate 95 92 Respiratory Rate 22 H 16 Respiratory Effort Normal Respiratory Depth Normal Respiratory Pattern Normal Blood Pressure 181/104 H 167/94 H Blood Pressure Mean 129 118 Pulse Ox 100 97 Oxygen Delivery Method Room Air Room Air Room Air 11/24/23 19:05 11/24/23 19:38 11/24/23 20:03 Temperature 98.6 F Temperature Source Oral Pulse Rate 98 84 Respiratory Rate 18 12 Respiratory Effort Respiratory Depth Respiratory Pattern Blood Pressure 137/91 H 150/96 H Blood Pressure Mean 106 114 Pulse Ox 97 97 Oxygen Delivery Method Room Air Room Air Room Air 11/24/23 22:00 Temperature Temperature Source Pulse Rate 81 Respiratory Rate 16 Respiratory Effort Respiratory Depth Respiratory Pattern Blood Pressure 141/81 H Blood Pressure Mean 101 Pulse Ox 98 Oxygen Delivery Method Room Air Positive well nourished and well developed; Negative for obese, cachectic, contractures or unkempt General Appearance ED: well developed and NAD; Negative for unkempt, cachectic, contractures or pallor Nutritional Appearance: Negative for cachectic or obese HEENT Reports moist mucous membranes; Denies dry mucous membranes atraumatic; Negative for trauma or tenderness Mouth ED: No dry mucous membranes Mouth: No dry mucous membranes Eyes PERRL and EOMs intact bilaterally General Eye ED: Negative for pale conjunctiva or scleral icterus Neck no lymphadenopathy, supple, no meningeal signs and no JVD General: Negative for tenderness or other Lymph Lymphatic: Negative for other Chest Wall Chest: Negative for other Resp normal respiratory effort and clear to auscultation bilaterally Resp Narrative: Prolonged expiratory phase Effort and Inspection: Negative for pain with movement Auscultation: Negative for rales, rhonchi, wheezes or diminished lung sounds Cardio regular rate, regular rhythm, S1 normal heart sound, S2 normal heart sound and no murmurs Rate: Negative for bradycardia or tachycardic Rhythm: Negative for abnormal rhythm GI non-tender, non-distended and no masses Inspection: Negative for other Auscultation: normoactive bowel sounds Palpation: soft; Negative for tender, guarding or rebound tenderness present Back/Spine no CVA tenderness and normal to inspection General Back: Negative for CVA tenderness or tenderness Extremity normal to inspection General Extremety ED: Negative for edema or tenderness General Extremity: Negative for edema Neuro oriented x3 and CN's II-XII intact bilaterally Sensorium / Orientation: alert, oriented to person, oriented to place and oriented to time; Negative for orientation impaired, confused or lethargic Speech: speech normal Motor Exam: strength 5/5 throughout Psych mental status grossly normal Appearance: Negative for unkempt Attitude: No agitated Mood & Affect: Negative for depressed, anxious or tearful Skin no wounds and skin turgor normal General Skin Exam: Negative for jaundice or pallor Lesions: no lesions Rashes: no rashes Trauma: Negative for abrasion or laceration MDM MDM MDM Narrative Medical decision making narrative: 53-year-old female with upper back pain and shortness of breath. Most likely has underlying COPD because she smoked a pack and a half a day for many years. States she has never been diagnosed with COPD. No history of DVT or PE. No cardiac history. I wanted to treat her with aerosols and steroids she said aerosols make her hyperventilate and she does not want to take them. She will be given prednisone. Have a cardiac workup. I do not think this is a DVT or PE and she has had no history of those nor any physical findings or risk factors. Repeat exam patient doing well at 10:15 PM. We went over test results which are basically unremarkable. History & Record Review Discussion w/independent historian: Patient Additional record(s) reviewed:: Prior inpatient record, Prior outpatient record, Prior ED visit and Prior labs Lab Data Attestation: I reviewed the patient's lab results. Lab results narrative: CBC shows a white count 13.9. H&H 13 and 39. Platelets 419. Electrolytes show a sodium 134. Gap 10. Normal BUN and creatinine. Glucose 95. Troponin is normal less than 3. Chest x-ray normal Labs: Laboratory Results - last 24 hr 11/24/23 18:51 WBC 13.9 H RBC 4.49 Hgb 13.5 Hct 39.3 MCV 87.5 MCH 30.1 MCHC 34.4 RDW Std Deviation 42.0 RDW Coeff of Yudy 13.2 Plt Count 419 MPV 9.7 Immature Gran % (Auto) 0.200 Neut % (Auto) 63.2 Lymph % (Auto) 29.5 [place] % (Auto) 5.8 Eos % (Auto) 0.9 Baso % (Auto) 0.4 Absolute Neuts (auto) 8.8 H Absolute Lymphs (auto) 4.09 Nucleated RBC % 0 Sodium 134 L Potassium 3.6 Chloride 101 Carbon Dioxide 23.0 Anion Gap 10 BUN 10 Creatinine 0.69 Estim Creat Clear Calc 95.34 Est GFR (MDRD) Af Amer 113 Est GFR (MDRD) Non-Af 93 BUN/Creatinine Ratio 14.4 Glucose 95 Calcium 9.6 Troponin I High Sens < 3 L Radiography Chest X-Ray - ED: 1 View, Read by ED Physician, Read by Radiologist, Normal, Heart, Lungs, Mediastinum, Bony Structures and No Acute Disease Diagnostic Testing: Clinical Impression(s) from Imaging Studies Chest X-Ray 11/24/23 19:20 IMPRESSION: Normal x-ray examination of the chest. Electronically Signed: Ermias Bailey MD at 19:36 EDT , Chest x-ray, portable, single view interpreted by myself and the radiologist shows no acute abnormality. Normal cardiac silhouette. Normal lung romo. Normal mediastinum. No infiltrates. No effusions. Rhythm Strip Rhythm Strip: Sinus Rhythm Rate: 78 Ectopy: None EKG Initial EKG: Attestation: I personally reviewed and interpreted this EKG as follows: Interpretation: Sinus Rhythm and No Acute Injury Pattern Comments: Normal sinus rhythm rate of 78 no acute signs of CO, ischemia or dysrhythmia. Discharge Plan Triage Chief Complaint: Shortness of Breath ED Provider: Иван Castañeda Dx/Rx/DC Orders Prescriptions: No Action aspirin 81 MG tablet,chewable 1 tab PO DAILY loratadine [Allergy Relief (loratadine)] 10 mg tablet 10 mg PO DAILY hydrochlorothiazide 25 MG tablet 1 tab PO QHS 30 Days Qty: 30 0RF nebivolol [Bystolic] 5 MG tablet 0.5 tab PO DAILY 30 Days Qty: 15 0RF fluticasone propionate 50 mcg/actuation spray,suspension 2 spray INTRANASAL DAILY omeprazole 20 mg tablet,delayed release (DR/EC) 20 mg PO DAILY PRN (Reason: gastric reflux) ibuprofen 200 mg capsule 600 mg PO Q8H PRN (Reason: pain) Primary Care Provider: Care Physician,No Primary Referrals: Care Physician,No Primary [Primary Care Provider] - Print Language: Gabonese
--- NOTE | 2023-11-24 19:20 | RAD_ITS ---
STUDY: X-RAY CHEST REASON FOR EXAM: Female, 53 years old. chest pain TECHNIQUE: AP portable COMPARISON: April 05, 2023 FINDINGS: The lungs are clear and expanded. There is no demonstrated pleural abnormality. Normal size heart. Normal mediastinum and mary. Normal visualized pulmonary arteries. Normal visualized aortic arch and descending thoracic aorta. Normal visualized thoracic spine. Normal visualized ribs, clavicles, and shoulders. There is no demonstrated abnormality of the visualized soft tissue structures of the upper abdomen. RAD/Chest 1 View (Portable) IMPRESSION: Normal x-ray examination of the chest. Electronically Signed: Ermias Bailey MD at 19:36 EDT ,
[2023-11-24 19:25] LABS: Absolute Lymphocyte Count 4.09 X10^3/uL (0.83-4.51); Absolute Neutrophil Count 8.8 X10^3/uL (2.0-7.7); Basophil# 0.05 X10^3/uL; Basophil% 0.4 % (0-1); Eosinophil# 0.13 X10^3/uL; Eosinophils% 0.9 % (0-5); Hematocrit 39.3 % (37-47); Hemoglobin 13.5 g/dL (12.0-15.0); Lymphocyte # 4.09 X10^3/ul (0.83-4.51); Lymphocyte % 29.5 % (19-41); Mean Corp Hgb Conc 34.4 g/dL (32-36); Mean Corpuscular Hgb 30.1 pg (27.0-32.0); Mean Corpuscular Volume 87.5 fL (81-99); Mean Platelet Vol. 9.7 fl (6.2-12.0); Monocyte% 5.8 % (0-10); NRBC Flagged by Analyzer 0 % (0-5); Neutrophil # 8.77 X10^3/uL (2.7-7.7); Neutrophil % 63.2 % (47-70); Platelet Count 419 K/mm3 (150-450); RBC Distribution Width CV 13.2 % (11.6-14.6); Red Blood Count 4.49 M/mm3 (4.2-5.4); White Blood Count 13.9 K/mm3 (4.4-11.0)
[2023-11-24] MEDS: predniSONE 20 MG Tablet 60 MG PO (19:37)
[2023-11-24 19:40] LABS: Anion Gap 10 (5-15); BUN 10 mg/dL (7-18); BUN/Creat Ratio 14.4 RATIO (10-20); Calcium,Total 9.6 mg/dL (8.5-10.1); Chloride 101 mmol/L (98-107); Creatinine, Serum 0.69 mg/dL (0.55-1.02); EST Glomerular Filtration Rate 93 mL/min (>60); Est Glom Filt Rate - Afr Amer 113 mL/min (>60); Estimated Creatinine Clearance 95.34 ml/min; Glucose 95 mg/dL (74-106); Potassium 3.6 mmol/L (3.5-5.1); Sodium Level 134 mmol/L (136-145); Troponin-I HS < 3 pg/mL (3.0-54.0)
[2023-11-24] MEDS: Ibuprofen 600 MG Tablet PO (22:26)
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
== END 2023-11-24 22:32 | disposition home or self-care (01) ==
PROVIDERS: Emergency Provider Emergency Medicine; Visit Provider Emergency Medicine
DX: R06.02 Shortness of breath (principal); I10 Essential (primary) hypertension; F17.210 Nicotine dependence, cigarettes, uncomplicated; Z79.82 Long term (current) use of aspirin; Z79.899 Other long term (current) drug therapy
CPT/HCPCS: 71045; 80048; 84484; 85025; 93005; 99284; A4216

== ENCOUNTER 2024-10-11 17:35 | Emergency (ER) | payer OTHER, SELFPAY ==
[2024-10-11 17:36] VITALS: BP 146/84; PULSE 109; RESP 19; TEMP 36.8; O2SAT 99; BMI 36.5
[2024-10-11 18:53] LABS: Absolute Lymphocyte Count 2.58 X10^3/uL (0.83-4.51); Absolute Neutrophil Count 10.1 X10^3/uL (2.0-7.7); Basophil# 0.03 X10^3/uL; Basophil% 0.2 % (0-1); Eosinophil# 0.03 X10^3/uL; Eosinophils% 0.2 % (0-5); Hematocrit 40.2 % (37-47); Hemoglobin 14.2 g/dL (12.0-15.0); Lymphocyte # 2.58 X10^3/ul (0.83-4.51); Lymphocyte % 19.2 % (19-41); Mean Corp Hgb Conc 35.3 g/dL (32-36); Mean Corpuscular Hgb 30.5 pg (27.0-32.0); Mean Corpuscular Volume 86.3 fL (81-99); Mean Platelet Vol. 9.6 fl (6.2-12.0); Monocyte# 0.68 X10^3/uL; NRBC Flagged by Analyzer 0 % (0-5); Neutrophil # 10.11 X10^3/uL (2.7-7.7); Neutrophil % 75.1 % (47-70); Platelet Count 476 K/mm3 (150-450); RBC Distribution Width CV 13.5 % (11.6-14.6); RBC Distribution Width SD 41.9 fl (35.1-43.9); Red Blood Count 4.66 M/mm3 (4.2-5.4); White Blood Count 13.5 K/mm3 (4.4-11.0)
--- NOTE | 2024-10-11 19:04 | US_ITS ---
PROCEDURE: GALLBLADDER 10/11/2024 REASON FOR EXAM: PAIN COMPARISON: CT abdomen pelvis 07/25/2023. FINDINGS: Liver: Normal in size and echotexture, measuring 16.8 cm. The main portal vein is patent with normal directional flow. No biliary ductal dilation. Gallbladder: No stones, sludge, wall thickening, pericholecystic fluid or tenderness. The gallbladder measures 2 mm in thickness. Common bile duct: Normal measuring 0.4 cm. Pancreas: Visualized portions are sonographically unremarkable. Other: Visualized portions of the right kidney are unremarkable. No right upper quadrant ascites. US/Gallbladder IMPRESSION: NORMAL RIGHT UPPER QUADRANT ULTRASOUND. Reading Location: [id number]
[2024-10-11 19:11] LABS: Lipase 87 U/L (13-75)
[2024-10-11 19:12] LABS: ALB/GLOB Ratio 1.3 RATIO (0.9-2.4); AST(SGOT) 22 U/L (<=31); Alanine Aminotransfer ALT/SGPT 11 U/L (<=34); Albumin, Serum 4.3 g/dL (3.5-5.0); Alkaline Phosphatase 36 U/L (35-104); Anion Gap 16 (5-15); BUN 8 mg/dL (4-19); BUN/Creat Ratio 12.3 RATIO (10-20); Calcium,Total 9.5 mg/dL (7.6-11.0); Carbon Dioxide 19.3 mmol/L (21.0-32.0); Chloride 99 mmol/L (98-108); Creatinine, Serum 0.65 mg/dL (0.70-1.20); EST Glomerular Filtration Rate 103 (>60); Estimated Creatinine Clearance 104.99 ml/min (50-250); Globulin 3.4 g/dL (2.2-4.2); Glucose 99 mg/dL (70-99); Potassium 3.8 mmol/L (3.3-5.1); Protein, Total 7.7 g/dL (5.9-8.4); Sodium Level 134 mmol/L (133-145); Total Bilirubin 0.28 mg/dL (0.00-1.30)
[2024-10-11] MEDS: Ondansetron 4 MG/2 ML Vial IV (19:12)
[2024-10-11] MEDS: Morphine 4 MG/ML Syringe IV (19:13)
[2024-10-11] MEDS: 0.9% Normal Saline (1000mL) 1,000 ML 999 ML IV (19:14)
[2024-10-11 19:24] LABS: Bacteria 0 SEEN /hpf (None Seen); Mucous, Urine 0 SEEN /hpf (<or=2+)
--- NOTE | 2024-10-11 19:31 | ED.VIS.GI ---
HPI HPI - GI History of Present Illness Chief Complaint: Abd Pain Informant: patient Narrative Narrative: Patient is a 54-year-old female with history of sciatica, hypothyroidism, hyperlipidemia, hypertension, COPD and tobacco use presenting with worsening right upper quadrant abdominal pain. Patient states 2 days ago she woke up in the morning with unbearable pain in this area. She states she was out of town and just had to deal with it. She notes that she did eat 2 hotdogs the night before. Since then she has not had much to eat or drink because of the pain and eating seems to make it worse. This morning when she woke up she was having worsening pain and ultimately came to the ER. The pain radiates to her right shoulder. She tried taking her last pain pill ([place]) that she had leftover from sciatica with no relief of her pain. She has no vomiting. Denies any fever but notes she laid in bed a lot yesterday and felt hot. Denies any urinary symptoms. States the pain feels like a severe cramp. Denies any black or blood in her stool. Denies any history of known gallbladder disease or gallbladder surgery. Denies any alcohol use. Patient notes she did have an episode of stool incontinence (small-volume) which is never happened to her before today as well. No other complaints or concerns reported at this time [facility] Medical History COPD (chronic obstructive pulmonary disease) Anxiety Depression Hypothyroidism Hyperlipidemia Hypertension Smoker Home Medications ?Medication ?Instructions ?Recorded ?Last Taken ?Type aspirin 81 mg chewable tablet 1 tab PO DAILY 07/29/17 Unknown History loratadine 10 mg tablet (Allergy 10 mg PO DAILY 04/05/23 Unknown History Relief (loratadine)) hydrochlorothiazide 25 mg tablet 1 tab PO QHS 30 days #30 tabs 07/10/23 Unknown Rx nebivolol 5 mg tablet (Bystolic) 0.5 tab PO DAILY 30 days #15 tabs 07/10/23 Unknown Rx fluticasone propionate 50 2 spray intranasal DAILY 11/24/23 Unknown History mcg/actuation nasal spray,suspension ibuprofen 200 mg capsule 600 mg PO Q8H PRN pain 11/24/23 Unknown History omeprazole 20 mg tablet,delayed 20 mg PO DAILY PRN gastric reflux 11/24/23 Unknown History release prednisone 20 mg tablet 40 mg (2 x 20 mg) PO DAILY 7 days 07/22/24 Unknown Rx #14 tabs hydrocodone-acetaminophen 5-325mg 1 tab PO Q8H PRN pain 3 days #10 10/11/24 Unknown Rx 5mg-325mg tabs ondansetron 4 mg disintegrating 4 mg PO Q8H PRN PRN Nausea #10 tabs 10/11/24 Unknown Rx tablet Allergy/AdvReac Type Severity Reaction Status Date / Time amoxicillin (From Augmentin) Allergy Nausea/Vom/ Verified 10/11/24 17:36 Diarrhea atorvastatin (From Lipitor) Allergy NEEDS Verified 10/11/24 17:36 FOLLOW-UP clavulanic acid (From Allergy Nausea/Vom/ Verified 10/11/24 17:36 Augmentin) Diarrhea Family History no significant family his Surgical History History of endometrial ablation Hx of tubal ligation Social History household members: none Smoking Status: Current every day smoker tobacco type: cigarettes substance use type: does not use ROS ROS ED Constitutional Constitutional ED: Reports fever(s) and subjective; Denies chills Cardiovascular Cardiovascular: Denies chest pain Respiratory/Chest Respiratory/Chest: Denies cough or dyspnea Gastrointestinal Gastrointestinal: Reports abdominal pain, diarrhea and nausea; Denies vomiting Musculoskeletal Musculoskeletal: Denies arthralgias or myalgias Integumentary Denies rash Neurologic Neurologic: Denies headache(s) Psychiatric Psychiatric: Reports anxiety Hematologic/Lymphatic Hematologic/Lymphatic: Denies easy bleeding or easy bruising EXAM Physical Exam Const Vital Signs: 10/11/24 17:36 10/11/24 19:44 10/11/24 20:43 Temperature 98.3 F Temperature Source Oral Pulse Rate 109 H 72 Respiratory Rate 19 H 14 Blood Pressure 146/84 H 132/88 H 127/72 H Blood Pressure Mean 104 102 90 Pulse Ox 99 97 96 Oxygen Delivery Method Room Air Room Air Room Air 10/11/24 21:53 10/11/24 21:54 Temperature 98.3 F Temperature Source Pulse Rate 74 77 Respiratory Rate 16 Blood Pressure 133/101 H 133/101 H Blood Pressure Mean 111 111 Pulse Ox 98 97 Oxygen Delivery Method Positive well nourished and well developed Constitutional Narrative: Uncomfortable appearing General Appearance ED: well developed and NAD; Negative for pallor HEENT Reports dry mucous membranes Mouth ED: Yes dry mucous membranes Mouth: dry mucous membranes Eyes General Eye ED: Negative for scleral icterus Neck supple Resp normal respiratory effort and clear to auscultation bilaterally Cardio regular rhythm Rate: tachycardic GI non-distended Auscultation: normoactive bowel sounds Palpation: soft, tender epigastric, RUQ and Fregoso's sign and guarding RUQ (Voluntary); Negative for hernia Back/Spine no CVA tenderness Extremity full ROM General Extremety ED: Negative for edema General Extremity: Negative for edema Neuro Sensorium / Orientation: alert, oriented to person, oriented to place and oriented to time Motor Exam: Negative for general weakness Psych mental status grossly normal and thought process normal Mood & Affect: anxious Skin General Skin Exam: Negative for jaundice or pallor MDM MDM MDM Narrative Medical decision making narrative: Patient evaluated for worsening right flank pain. She is quite tender on exam in her right upper quadrant. Differential includes cholecystitis, pancreatitis, renal colic, colitis and muscle skeletal pain. Patient is given IV morphine and Zofran as well as IV fluids. She has significant improvement of her pain and states it took the edge off. CBC shows a mild leukocytosis however this appears to be baseline for the patient. CMP unremarkable except for a bicarb of 19.3 which is consistent with some dehydration. Normal kidney function normal electrolytes. Normal liver panel. Lipase is minimally elevated 87 which is nonspecific. Urinalysis shows 150 ketones Siska with dehydration but also shows 10-25 red blood cells. No bacteria this is Nexis with infection. Right upper quadrant ultrasound is normal. Lower suspicion for cholecystitis or biliary colic given ultrasound and normal liver panel. Because of the study of her pain and hematuria CT the abdomen pelvis is added on to look for obstructing kidney stone or other acute intra-abdominal process. CT abdomen pelvis does not show any acute process. Discussed given her flank pain and hematuria is possible that she passed a stone before arrival. Patient states she has been told she is hematuria in the past and will be given referral for urology for follow-up of this. Patient be given a short course of [place] for pain control as well as Zofran Lab Data Attestation: I reviewed the patient's lab results. Labs: Laboratory Results - last 24 hr 10/11/24 10/11/24 18:30 18:45 WBC 13.5 H RBC 4.66 Hgb 14.2 Hct 40.2 MCV 86.3 MCH 30.5 MCHC 35.3 RDW Std Deviation 41.9 RDW Coeff of Yudy 13.5 Plt Count 476 H MPV 9.6 Immature Gran % (Auto) 0.300 Neut % (Auto) 75.1 H Lymph % (Auto) 19.2 [place] % (Auto) 5.0 Eos % (Auto) 0.2 Baso % (Auto) 0.2 Absolute Neuts (auto) 10.1 H Absolute Lymphs (auto) 2.58 Nucleated RBC % 0 Sodium 134 Potassium 3.8 Chloride 99 Carbon Dioxide 19.3 L Anion Gap 16 H BUN 8 Creatinine 0.65 L Estim Creat Clear Calc 104.99 Est GFR (MDRD) Non-Af 103 BUN/Creatinine Ratio 12.3 Glucose 99 Calcium 9.5 Total Bilirubin 0.28 AST 22 ALT 11 Alkaline Phosphatase 36 Total Protein 7.7 Albumin 4.3 Globulin 3.4 Albumin/Globulin Ratio 1.3 Lipase 87 H Urine Color Yellow Urine Clarity Clear Urine pH 7.0 Ur Specific [place] 1.010 Urine Protein 30 H Urine Glucose (UA) Normal Urine Ketones 150 A* Urine Occult Blood 250 H Urine Nitrite Negative Urine Bilirubin 1 H Urine Urobilinogen 1 H Ur Leukocyte Esterase 25 H Urine RBC 10-25 SEEN Urine WBC 5-10 SEEN Ur Squamous Epith Cells 0-5 SEEN Urine Bacteria 0 SEEN Urine Mucus 0 SEEN Radiography Diagnostic Testing: Clinical Impression(s) from Imaging Studies Gallbladder Ultrasound 10/11/24 19:04 IMPRESSION: NORMAL RIGHT UPPER QUADRANT ULTRASOUND. Reading Location: [facility] Abdomen/Pelvis CT 10/11/24 20:24 IMPRESSION: No acute abdominopelvic finding. Reading Location: [facility] Discharge Plan Triage Chief Complaint: Abd Pain ED Provider: Terrie Perdomo Dx/Rx/DC Orders Clinical Impression: Right flank pain, Hematuria Instructions: ED Flank Pain, Uncertain Cause, ED Hematuria Prescriptions: New hydrocodone-acetaminophen 5-325 mg tablet 1 tab PO Q8H PRN (Reason: pain) 3 Days Qty: 10 0RF ondansetron 4 mg tablet,disintegrating 4 mg PO Q8H PRN PRN (Reason: Nausea) Qty: 10 0RF No Action aspirin 81 MG tablet,chewable 1 tab PO DAILY loratadine [Allergy Relief (loratadine)] 10 mg tablet 10 mg PO DAILY hydrochlorothiazide 25 MG tablet 1 tab PO QHS 30 Days Qty: 30 0RF nebivolol [Bystolic] 5 MG tablet 0.5 tab PO DAILY 30 Days Qty: 15 0RF fluticasone propionate 50 mcg/actuation spray,suspension 2 spray INTRANASAL DAILY omeprazole 20 mg tablet,delayed release (DR/EC) 20 mg PO DAILY PRN (Reason: gastric reflux) ibuprofen 200 mg capsule 600 mg PO Q8H PRN (Reason: pain) prednisone 20 mg tablet 40 mg PO DAILY 7 Days Qty: 14 0RF Primary Care Provider: Mary Hernandez NP Referrals: Beverley Infante MD [Med Staff - Active Staff] - Mary Hernandez NP, [employer] [Primary Care Provider] - Activity Restrictions/Additional Instructions: Your workup today was largely normal with no signs of acute gallbladder attack or kidney stone. You did have blood in your urine so it is possible that you passed a kidney stone before coming in. She had blood in her urine before I do recommend he follow-up with urology. We given referral for Dr. Infante. You did have some findings of dehydration. You were given IV fluids. Make sure you are drinking plenty of fluids. Print Language: Emirati Disposition Disposition: Home, Self Care Discharge Date/Time: 10/11/24 22:20
[2024-10-11 19:40] LABS: Glucose, Dipstick Normal (Normal); Leukocyte Esterase-Dipstick 25 /ul (Negative); Nitrite-Dipstick Negative (Negative); Occult Blood-Urine 250 /ul (Negative); Protein-Dipstick 30 mg/dl (Negative); Urine Urobilinogen 1 mg/dl (Normal)
[2024-10-11 19:44] VITALS: BP 132/88; O2SAT 97
[2024-10-11 19:45] LABS: Color, Urine Yellow (Yellow); Urine Bilirubin Dipstick 1 mg/dL (Negative); Urine Clarity Clear (Clear)
[2024-10-11 19:49] LABS: Ketone-Dipstick 150 mg/dl (Negative)
[2024-10-11 20:00] LABS: Red Blood Cells-Urine 10-25 SEEN /hpf (0-5)
[2024-10-11 20:01] LABS: White Blood Cells 5-10 SEEN /hpf (0-5)
[2024-10-11 20:02] LABS: Squamous Epithelial Cells - UA 0-5 SEEN /hpf (5-10)
--- NOTE | 2024-10-11 20:24 | CT_ITS ---
PROCEDURE: ABDOMEN/PELVIS WITHOUT CONT 10/11/2024 REASON FOR EXAM: RIGHT FLANK PAIN TECHNIQUE: Abdomen and pelvis CT without intravenous contrast. Noncontrast technique limits evaluation of the abdominal and pelvic viscera. Coronal and Sagittal reconstruction series were provided. One or more dose reduction techniques were used (e.g., Automated exposure control, adjustment of the mA and/or kV according to patient size, use of iterative reconstruction technique). PATIENT PREPARATION: Per protocol ORAL CONTRAST TYPE: None. COMPARISON: Same day gallbladder ultrasound, CT abdomen pelvis 07/25/2023. FINDINGS: Lung bases: Unremarkable. The heart is normal in size. Liver: The unopacified liver is normal in size. No biliary ductal dilation. Gallbladder: No radiopaque stones within the gallbladder. Spleen: Normal in size. Pancreas: The unopacified pancreas is unremarkable. Adrenals: No adrenal mass. Kidneys: No hydronephrosis or nephrolithiasis. Bladder: Minimally distended and unremarkable. Reproductive Organs: Normal uterine size and contour. Ovaries are unremarkable. Bowel: The bowel loops are nondilated. No ascites or pneumoperitoneum. Normal appendix. Lymph nodes: Visualization is limited without the use of IV contrast. No significant lymphadenopathy. Vasculature: Moderate calcific plaque of the aortoiliac vessels. Bones: Mild thoracolumbar spondylosis. CT/Abdomen/Pelvis without Cont IMPRESSION: No acute abdominopelvic finding. Reading Location: [id number]
[2024-10-11 20:43] VITALS: BP 127/72; PULSE 72; RESP 14; O2SAT 96
[2024-10-11 21:53] VITALS: BP 133/101; PULSE 74; RESP 16; TEMP 36.8; O2SAT 98
[2024-10-11 21:54] VITALS: BP 133/101; PULSE 77; O2SAT 97
== END 2024-10-11 22:20 | disposition home or self-care (01) ==
PROVIDERS: Emergency Provider Emergency Medicine; PCP Nurse Practitioner Family; Visit Provider Emergency Medicine
DX: R10.9 Unspecified abdominal pain (principal); J44.9 Chronic obstructive pulmonary disease, unspecified; R31.9 Hematuria, unspecified; F17.210 Nicotine dependence, cigarettes, uncomplicated
CPT/HCPCS: 74176; 76705; 80053; 81001; 83690; 85025; 96361; 96374; 96375; 96376; 99283; A4216; J2405

== ENCOUNTER 2025-01-05 16:46 | Emergency (ER) | payer OTHER, SELFPAY ==
[2025-01-05 16:48] VITALS: BP 124/81; PULSE 83; RESP 19; TEMP 38.2; O2SAT 100; BMI 35.0
--- NOTE | 2025-01-05 17:16 | EX.ED.DYSGE1 ---
HPI History of Present Illness Chief Complaint: Fever Detail of Chief Complaint: Fever, frequency, discomfort with urination Informant: patient Onset/Context/Timing Onset: Days (Onset December 31. Patient does complain of back flank pain on the left.) Context: Sudden Onset Timing: Intermittent and Waxes and wanes Quality: Tmax of 101 ?F, urinary symptoms and flank pain Location: Current Severity: Mild Maximum Severity: Moderate Worsened by: Urination Relieved by: Nothing Associated Symptoms Associated Symptoms: Nausea with poor p.o. intake Narrative Narrative: Patient is a 54-year-old woman. She is not a good informant. She was seen October 11, [address] Perdomo for right flank pain. She did have a ultrasound that revealed normal right upper quadrant. She also had a CAT scan that revealed no acute findings. Her urinalysis at that time revealed microscopic hematuria. White count was slightly elevated 13.5 with slight shift. Comprehensive metabolic panel was unremarkable. Lipase was slightly elevated. Patient does endorse smoking 1 to 2 packs a day. She does endorse nausea without vomiting. Denies diarrhea. She does report discomfort with urination and frequency. She denies blood in her urine. She denies headache, visual, ocular auditory symptoms. Denies photophobia. She denies neck pain or neck stiffness. She does report mild cough which is chronic. The cough is nonproductive. He states this is due to her smoking. She denies chest discomfort. There is no history of VTE. Prior similar symptoms: Yes (Right flank pain earlier this year with no known etiology) Recent Illness/Hospitalization: No PFSH PFSH Medical History COPD (chronic obstructive pulmonary disease) Anxiety Depression Hypothyroidism Hyperlipidemia Hypertension Smoker Home Medications ?Medication ?Instructions ?Recorded ?Last Taken ?Type aspirin 81 mg chewable tablet 1 tab PO DAILY 07/29/17 Unknown History loratadine 10 mg tablet (Allergy 10 mg PO DAILY 04/05/23 Unknown History Relief (loratadine)) hydrochlorothiazide 25 mg tablet 1 tab PO QHS 30 days #30 tabs 07/10/23 Unknown Rx nebivolol 5 mg tablet (Bystolic) 0.5 tab PO DAILY 30 days #15 tabs 07/10/23 Unknown Rx fluticasone propionate 50 2 spray intranasal DAILY 11/24/23 Unknown History mcg/actuation nasal spray,suspension ibuprofen 200 mg capsule 600 mg PO Q8H PRN pain 11/24/23 Unknown History omeprazole 20 mg tablet,delayed 20 mg PO DAILY PRN gastric reflux 11/24/23 Unknown History release prednisone 20 mg tablet 40 mg (2 x 20 mg) PO DAILY 7 days 11/24/23 Unknown Rx #14 tabs hydrocodone-acetaminophen 5-325mg 1 tab PO Q8H PRN pain 3 days #10 10/11/24 Unknown Rx 5mg-325mg tabs ondansetron 4 mg disintegrating 4 mg PO Q8H PRN PRN Nausea #10 tabs 10/11/24 Unknown Rx tablet cephalexin 500 mg capsule 500 mg PO Q6 #40 CAPSULES 01/05/25 Unknown Rx hydrocodone-acetaminophen 5-325mg 1 tab PO Q6H PRN PRN Pain 3 days 01/05/25 Unknown Rx 5mg-325mg #10 TABLETS ondansetron 4 mg disintegrating 4 mg PO Q8H PRN PRN Nausea #10 tabs 01/05/25 Unknown Rx tablet Allergy/AdvReac Type Severity Reaction Status Date / Time amoxicillin (From Augmentin) Allergy Nausea/Vom/ Verified 10/11/24 17:36 Diarrhea atorvastatin (From Lipitor) Allergy NEEDS Verified 10/11/24 17:36 FOLLOW-UP clavulanic acid (From Allergy Nausea/Vom/ Verified 10/11/24 17:36 Augmentin) Diarrhea Surgical History History of endometrial ablation Hx of tubal ligation Social History household members: none Smoking Status: Current every day smoker tobacco type: cigarettes substance use type: does not use ROS ROS ED Constitutional Constitutional ED: Reports chills and fever(s); Denies subjective or sweats Eyes Eyes: Denies blurry vision or change in vision ENT ENT ED: Denies ear pain, rhinorrhea or sore throat Cardiovascular Cardiovascular: Denies chest pain or palpitations Respiratory/Chest Respiratory/Chest: Denies cough, dyspnea or dyspnea on exertion Gastrointestinal Gastrointestinal: Reports nausea; Denies abdominal pain, constipation, diarrhea, melena or vomiting Genitourinary Genitourinary ED: Reports urinary frequency; Denies dysuria or hematuria Musculoskeletal Musculoskeletal: Reports back pain; Denies arthralgias or myalgias Integumentary Denies rash Neurologic Neurologic: Reports weakness; Denies headache(s) or paresthesias Hematologic/Lymphatic Hematologic/Lymphatic: Reports systems reviewed and no addt'l complaints, except as documented EXAM Physical Exam Const Vital Signs: 01/05/25 16:48 01/05/25 16:52 01/05/25 17:49 Temperature 100.8 F H Temperature Source Oral Pulse Rate 83 Pulse Rate [Lying] 81 Pulse Rate [Sitting (for 1 minute prior to obtaining)] 96 Pulse Rate [Standing (for 1 minute prior to obtaining)] 104 H Respiratory Rate 19 H Respiratory Pattern Normal Blood Pressure 124/81 H Blood Pressure [Lying] 130/81 H Blood Pressure [Sitting (for 1 minute prior to obtaining)] 119/65 Blood Pressure [Standing (for 1 minute prior to obtaining)] 128/77 H Blood Pressure Mean 95 Blood Pressure Mean [Lying] 97 Blood Pressure Mean [Sitting (for 1 minute prior to obtaining)] 83 Blood Pressure Mean [Standing (for 1 minute prior to obtaining)] 94 Pulse Ox 100 Oxygen Delivery Method Room Air Positive well nourished and well developed Constitutional Narrative: Patient appears ill. Patient's vitals are marked for an elevated temperature. General Appearance ED: well developed; Negative for pallor HEENT Reports dry mucous membranes HEENT Narrative: Patient is a dentulous. Posterior pharynx normal. Mouth ED: Yes dry mucous membranes Mouth: dry mucous membranes Eyes PERRL and EOMs intact bilaterally General Eye ED: Negative for pale conjunctiva or scleral icterus Neck no lymphadenopathy, supple and no JVD Resp normal respiratory effort and clear to auscultation bilaterally Cardio regular rate, regular rhythm, S1 normal heart sound, S2 normal heart sound and no murmurs GI normal to inspection, nondistended, normoactive bowel sounds, non-distended and no masses; Negative for hepatosplenomegaly Palpation: soft and tender suprapubic Back/Spine General Back: CVA tenderness left Extremity normal to inspection General Extremety ED: Negative for edema or tenderness General Extremity: Negative for edema Neuro oriented x3 and CN's II-XII intact bilaterally Sensorium / Orientation: alert Psych Mood & Affect: depressed Skin no rashes or lesions noted, no wounds and No skin turgor normal General Skin Exam: Negative for jaundice or pallor MDM MDM MDM Narrative Medical decision making narrative: Differential diagnoses complicated UTI, pyelonephritis, obstructing stone with infection, sepsis. Clinically she appears dehydrated. 1 L of normal saline was ordered. She also will receive Zofran for her nausea. Compressive metabolic panel was obtained to assess for endorgan dysfunction and specifically renal function CO2 anion gap. CBC to assess white count differential. UA to determine if she has an infection. History & Record Review Additional record(s) reviewed:: Prior ED visit (Documented HPI narrative.) and Prior labs Lab Data Attestation: I reviewed the patient's lab results. Lab results narrative: White count is elevated. There is no shift. H&H is normal. There is no evidence of endorgan dysfunction. Urine is consistent with infection. Urine culture was sent prior to administration of ceftriaxone. She was discharged to home on antibiotics. Patient reports she feels better when she was reassessed at 1847 Labs: Laboratory Results - last 24 hr 01/05/25 01/05/25 17:20 17:40 WBC 14.2 H RBC 4.65 Hgb 13.9 Hct 39.0 MCV 83.9 MCH 29.9 MCHC 35.6 RDW Std Deviation 40.0 RDW Coeff of Yudy 13.0 Plt Count 426 MPV 9.6 Immature Gran % (Auto) 0.500 Neut % (Auto) 68.8 Lymph % (Auto) 20.6 [place] % (Auto) 9.1 Eos % (Auto) 0.6 Baso % (Auto) 0.4 Absolute Neuts (auto) 9.8 H Absolute Lymphs (auto) 2.93 Nucleated RBC % 0 Sodium 136 Potassium 2.9 L Chloride 99 Carbon Dioxide 21.0 Anion Gap 16 H BUN 10 Creatinine 0.66 L Estim Creat Clear Calc 101.15 Est GFR (MDRD) Non-Af 103 BUN/Creatinine Ratio 14.7 Glucose 107 H Calcium 9.5 Total Bilirubin 0.30 AST 19 ALT 16 Alkaline Phosphatase 37 Total Protein 7.4 Albumin 3.8 Globulin 3.6 Albumin/Globulin Ratio 1.1 Urine Color Straw Urine Clarity Cloudy Urine pH 7.0 Ur Specific [place] 1.005 Urine Protein 30 H Urine Glucose (UA) Normal Urine Ketones 15 H Urine Occult Blood 150 H Urine Nitrite Positive H Urine Bilirubin Negative Urine Urobilinogen Normal Ur Leukocyte Esterase 500 H Urine RBC 5-10 SEEN Urine WBC 50-100 SEEN Ur Squamous Epith Cells 0-5 SEEN Amorphous Sediment 2+ Urine Bacteria 4+ Urine Mucus 1+ Treatment and Re-Evaluation :: Reassessed at 1847. Patient reports she feels better and she looks better. Will discharge to home Discharge Plan Triage Chief Complaint: Fever ED Provider: Adolfo Juárez Dx/Rx/DC Orders Clinical Impression: Acute bacterial pyelonephritis, Sinus tachycardia, Fever, Leukocytosis, Acute dehydration, Nausea, Elevated blood pressure reading with diagnosis of hypertension Instructions: ED Pyelonephritis, Female (Adult) Prescriptions: New hydrocodone-acetaminophen 5-325 mg tablet 1 tab PO Q6H PRN PRN (Reason: Pain) 3 Days Qty: 10 0RF cephalexin 500 mg capsule 500 mg PO Q6 Qty: 40 0RF ondansetron 4 mg tablet,disintegrating 4 mg PO Q8H PRN PRN (Reason: Nausea) Qty: 10 0RF No Action aspirin 81 MG tablet,chewable 1 tab PO DAILY loratadine [Allergy Relief (loratadine)] 10 mg tablet 10 mg PO DAILY hydrochlorothiazide 25 MG tablet 1 tab PO QHS 30 Days Qty: 30 0RF nebivolol [Bystolic] 5 MG tablet 0.5 tab PO DAILY 30 Days Qty: 15 0RF hydrocodone-acetaminophen 5-325 mg tablet 1 tab PO Q8H PRN (Reason: pain) 3 Days Qty: 10 0RF ondansetron 4 mg tablet,disintegrating 4 mg PO Q8H PRN PRN (Reason: Nausea) Qty: 10 0RF fluticasone propionate 50 mcg/actuation spray,suspension 2 spray INTRANASAL DAILY omeprazole 20 mg tablet,delayed release (DR/EC) 20 mg PO DAILY PRN (Reason: gastric reflux) ibuprofen 200 mg capsule 600 mg PO Q8H PRN (Reason: pain) prednisone 20 mg tablet 40 mg PO DAILY 7 Days Qty: 14 0RF Primary Care Provider: Mary Hernandez NP Referrals: Mary Hernandez NP, [employer] [Primary Care Provider] - Print Language: Chilean Disposition Disposition: Home, Self Care
[2025-01-05 17:27] LABS: Hematocrit 39.0 % (37-47); Hemoglobin 13.9 g/dL (12.0-15.0); Immature Granulocytes Count 0.070 X10^3/uL (0.0-0.0); Mean Corp Hgb Conc 35.6 g/dL (32-36); Mean Corpuscular Volume 83.9 fL (81-99); Mean Platelet Vol. 9.6 fl (6.2-12.0); NRBC Flagged by Analyzer 0 % (0-5); Platelet Count 426 K/mm3 (150-450); RBC Distribution Width CV 13.0 % (11.6-14.6); RBC Distribution Width SD 40.0 fl (35.1-43.9); Red Blood Count 4.65 M/mm3 (4.2-5.4); White Blood Count 14.2 K/mm3 (4.4-11.0)
[2025-01-05] MEDS: 0.9% Normal Saline (1000mL) 1,000 ML 1000 ML IV (17:37)
[2025-01-05 17:49] VITALS: BP 119/65; BP 128/77; BP 130/81; PULSE 104; PULSE 81; PULSE 96
[2025-01-05 17:51] LABS: Color, Urine Straw (Yellow); Glucose, Dipstick Normal (Normal); Ketone-Dipstick 15 mg/dl (Negative); Leukocyte Esterase-Dipstick 500 /ul (Negative); Nitrite-Dipstick Positive (Negative); Occult Blood-Urine 150 /ul (Negative); Protein-Dipstick 30 mg/dl (Negative); Specific Gravity, Urine 1.005 (1.002-1.030); Urine Bilirubin Dipstick Negative (Negative)
[2025-01-05 18:11] LABS: Red Blood Cells-Urine 5-10 SEEN /hpf (0-5); Squamous Epithelial Cells - UA 0-5 SEEN /hpf (5-10)
[2025-01-05 18:14] LABS: Mucous, Urine 1+ /hpf (<or=2+)
[2025-01-05 18:19] LABS: AST(SGOT) 19 U/L (<=31); Alanine Aminotransfer ALT/SGPT 16 U/L (<=34); Albumin, Serum 3.8 g/dL (3.5-5.0); Alkaline Phosphatase 37 U/L (35-104); Anion Gap 16 (5-15); BUN 10 mg/dL (4-19); BUN/Creat Ratio 14.7 RATIO (10-20); Calcium,Total 9.5 mg/dL (7.6-11.0); Carbon Dioxide 21.0 mmol/L (21.0-32.0); Chloride 99 mmol/L (98-108); Estimated Creatinine Clearance 101.15 ml/min (50-250); Globulin 3.6 g/dL (2.2-4.2); Glucose 107 mg/dL (70-99); Potassium 2.9 mmol/L (3.3-5.1)
[2025-01-05] MEDS: Ceftriaxone 2 GM in 0.9% Normal Saline (50mL MB+) 50 ML IV (18:44)
[2025-01-05 18:46] VITALS: BP 91/48
[2025-01-05 19:39] VITALS: BP 128/60; PULSE 98; RESP 16; TEMP 37.2; O2SAT 97
== END 2025-01-05 19:39 | disposition home or self-care (01) ==
PROVIDERS: Emergency Provider Emergency Medicine; PCP Nurse Practitioner Family; Visit Provider Emergency Medicine
DX: N10 Acute pyelonephritis (principal); E86.0 Dehydration; I10 Essential (primary) hypertension; F17.210 Nicotine dependence, cigarettes, uncomplicated; Z79.899 Other long term (current) drug therapy
CPT/HCPCS: 80053; 81001; 85025; 87086; 87088; 87186; 96365; 96375; 96376; 99285; A4216; J0696; J2405